=== PATIENT | female | born 1935 | race American Indian/Alaskan Native ===

== ENCOUNTER 2017-04-23 09:10 | Inpatient (IN) | payer MEDICARE, OTHER ==
[2017-04-23 09:13] VITALS: BMI 24.2
[2017-04-23] MEDS ORDERED: Albuterol-Ipratrop 3 mg / 0.5 (3 ml) UD ONE (09:23)
[2017-04-23] MEDS ORDERED: Nitroglycerin 2% Ointment Foilpak UD TOP STA (09:28)
[2017-04-23] MEDS: Albuterol-Ipratrop 3 mg / 0.5 (3 ml) UD IH SCH ×3 (09:30→10:00)
[2017-04-23 09:39] LABS: BASO # 0.05 K/mm3 (0.0-2.0); BASO % 0.4 % (0.0-3.0); EOS # 0.2 (0.0-0.7); EOS % 1.8 % (1.5-5.0); GRAN # 9.24 (1.4-6.5); GRAN % 76.4 % (50.0-68.0); LYMPH # 1.7 (1.2-3.4); LYMPH % 14.1 % (22.0-35.0); MEAN CELL VOLUME 69.4 fL (80.0-105.0); MEAN CORPUSCULAR HEMOGLOBIN 20.4 pg (25.0-35.0); MEAN CORPUSCULAR HGB CONC 29.4 g/dl (31.0-37.0); MONO # 0.9 (0.1-0.6); MONO % 7.3 % (1.0-6.0); PLATELET COUNT 344 10^3/uL (120.0-450.0); RBC 3.92 10^6/uL (3.5-6.1); RED CELL DISTRIBUTION WIDTH 24.6 % (11.5-14.5); WHITE BLOOD COUNT 12.1 10^3/ul (4.5-11.0)
--- NOTE | 2017-04-23 09:43 | ED PDOC ---
Arrival/HPI - General Chief Complaint: Shortness Of Breath Time Seen by Provider: 04/23/17 09:23 Historian: EM Caveat: Acuity of Condition - Critical Care Critical Care Minutes: 30 minutes - History of Present Illness Narrative History of Present Illness (Text): 04/23/17 09:40 81yo female with shortness of breath and LOCKETT since this morning. Pt denies chest pain. No f/c, no n/v, no other complaints. Hx obtained from daughter. Past Medical History - Provider Review Nursing Documentation Reviewed: Yes - Cardiac Hx Cardiac Disorders: Yes Hx Congestive Heart Failure: Yes Hx Hypertension: Yes - Pulmonary Hx Respiratory Disorders: No - Neurological Hx Neurological Disorder: No - Renal Hx Renal Disorder: No - Endocrine/Metabolic Hx Endocrine Disorders: No - Hematological/Oncological Hx Blood Disorders: No - Musculoskeletal/Rheumatological Hx Musculoskeletal Disorders: Yes Hx Fractures: Yes - Gastrointestinal Hx Gastrointestinal Disorders: No - Genitourinary/Gynecological Hx Genitourinary Disorders: No - Psychiatric Hx Psychophysiologic Disorder: No Hx Substance Use: No - Surgical History Hx Hysterectomy: Yes Family/Social History Family/Social History: Unknown Family HX Smoking Status: Never Smoked Hx Alcohol Use: No Hx Substance Use: No Allergies/Home Meds Allergies/Adverse Reactions: Allergies No Known Allergies Allergy (Verified 04/23/17 09:12) Home Medications: Home Meds Medication Instructions Recorded Confirmed Alendronate Sodium [Binosto] 70 mg PO 04/23/17 Allopurinol [Zyloprim] 100 mg PO DAILY 04/23/17 04/23/17 Aspirin [Adult Low Dose Aspirin EC] 81 mg PO DAILY 04/23/17 04/23/17 Atorvastatin Calcium 40 mg PO DAILY 04/23/17 04/23/17 Clopidogrel [Plavix] 75 mg PO DAILY 04/23/17 04/23/17 Colchicine [Colcrys] 0.6 mg PO DAILY 04/23/17 04/23/17 Folic Acid 1 mg PO DAILY 04/23/17 04/23/17 Furosemide [Lasix] 40 mg PO BID 04/23/17 04/23/17 Hydralazine HCl 50 mg PO TID 04/23/17 04/23/17 Linagliptin [Tradjenta] 5 mg PO DAILY 04/23/17 04/23/17 NIFEdipine ER [Procardia XL] 90 mg PO DAILY 04/23/17 04/23/17 Nebivolol [Bystolic] 20 mg PO DAILY 04/23/17 04/23/17 Valsartan [Diovan] 320 mg PO DAILY 04/23/17 04/23/17 cloNIDine 0.1 mg/24 hr [catapres 1 patch TD 04/23/17 04/23/17 TTS1] Review of Systems - Review of Systems Systems not reviewed;Unavailable: Respiratory Distress Physical Exam Vital Signs Reviewed: Yes Vital Signs Temp Pulse Resp BP Pulse Ox 04/23/17 10:12 97 F L 86 20 151/67 H 100 04/23/17 09:55 153/77 H 04/23/17 09:53 96.2 F L 04/23/17 09:22 105 H 21 156/69 H 04/23/17 09:15 130 H 42 H 99 Temperature: Afebrile Blood Pressure: Hypertensive Pulse: Tachycardic Respiratory Rate: Tachypneic Appearance: Positive for: Uncomfortable Pain Distress: None Mental Status: Positive for: Alert and Oriented X 3. No: Confused, Agitated - Systems Exam Head: Present: Atraumatic, Normocephalic Pupils: Present: PERRL Extroacular Muscles: Present: EOMI Conjunctiva: Present: Normal Mouth: Present: Moist Mucous Membranes Neck: Present: Normal Range of Motion Respiratory/Chest: Present: Respiratory Distress, Decreased Breath Sounds, Tachypneic Cardiovascular: Present: Irregular Rhythm, Peripheal Pulses Present, Tachycardic Abdomen: Present: Normal Bowel Sounds. No: Tenderness, Distention, Peritoneal Signs, Rebound, Guarding Back: Present: Normal Inspection Upper Extremity: Present: Normal Inspection. No: Cyanosis, Edema Lower Extremity: Present: Edema, NORMAL PULSES, Swelling Neurological: Present: GCS=15, CN II-XII Intact, Speech Normal, Other (no focal neurological deficits) Skin: Present: Warm, Dry, Normal Color. No: Rashes Psychiatric: Present: Alert, Oriented x 3 Medical Decision Making ED Course and Treatment: elderly female with shortness of breath. seen immediately on arrival b/l LE edema and tachypnea differential includes but not limited to: CHF, PNA, ACS bipap, nebs, asa, ntg ordered 04/23/17 09:43 on reeval, pt on bipap, breathing better, resp distress resolving 04/23/17 09:45 EKG: Ordered, reviewed, and independently interpreted the EKG. Rate : 120 BPM Rhythm : Irregular Atrial Fibrillation Interpretation : No ST-segment elevations,normal axis, normal intervals. Interpreted by me. 04/23/17 09:53: Patient tolerating BiPAP well. Respiratory distress significantly improved. 04/23/17 10:27 Chest X-ray: Cardiomegaly with vascular congestion. Possible infiltrate. 04/23/17 10:30: Case discussed with Dr. Calvillo from ICU. States he will evaluate. 04/23/17 11:43 EKG: Ordered, reviewed, and independently interpreted the EKG. Rate : 80 BPM Rhythm : NSR Interpretation : No ST-segment elevations, normal axis, normal intervals. Interpreted by me. 04/23/17 11:44: Patient seen and examined by Dr. Calvillo, agrees to admit patient into ICU. Requests Chest CT. 04/23/17 11:[address] Larios, accepted to his service pt's family aware of and agree with plan pt in no resp distress tolerating bipap wall - Critical Care Critical Care Minutes: 30 minutes - Lab Interpretations Lab Results: 04/23/17 09:35 04/23/17 10:15 Lab Results 04/23/17 10:15: Urine Color Light yellow, Urine Appearance Sl cloudy, Urine pH 6.0, Ur Specific [place] 1.025, Urine Protein 30 H, Urine Glucose (UA) Negative , Urine Ketones Negative, Urine Blood Negative, Urine Nitrate Negative, Urine Bilirubin Negative, Urine Urobilinogen 0.2, Ur Leukocyte Esterase Negative, Urine RBC 0 - 2, Urine WBC 0 - 2, Ur Epithelial Cells 0 - 2, Amorphous Sediment Moderate, Urine Bacteria Mod, Hyaline Casts 0 - 2 04/23/17 10:15: Sodium 144, Potassium 3.3 L, Chloride 110 H, Carbon Dioxide 22, Anion Gap 15, BUN 33 H, Creatinine 1.9 H, Est GFR ( Amer) 31, Est GFR ( Non-Af Amer) 25, Random Glucose 239 H, Calcium 8.8, Total Bilirubin 0.6, AST 56 H, ALT 46, Alkaline Phosphatase 101, Lactate Dehydrogenase 637, Total Creatine Kinase 82, Troponin I 0.11, NT-Pro-B Natriuret Pep 4110 H, Total Protein 6.7, Albumin 3.6, Globulin 3.2, Albumin/Globulin Ratio 1.1 04/23/17 09:35: PT 11.1, INR 1.03, APTT 18.4 L 04/23/17 09:35: WBC 12.1 H, RBC 3.92, Hgb 8.0 L, Hct 27.2 L, MCV 69.4 L, MCH 20.4 L, MCHC 29.4 L, RDW 24.6 H, Plt Count 344, Gran % 76.4 H, Lymph % (Auto) 14.1 L, [place] % (Auto) 7.3 H, Eos % (Auto) 1.8, Baso % (Auto) 0.4, Gran # 9.24 H , Lymph # 1.7, Burnet # 0.9 H, Eos # 0.2, Baso # 0.05 I have reviewed the lab results: Yes - RAD Interpretation Radiology Orders: 04/23/17 09:28 CHEST PORTABLE [RAD] Stat - EKG Interpretation Interpreted by ED Physician: Yes Type: 12 lead EKG - Medication Orders Current Medication Orders: Discontinued Medications Albuterol/Ipratropium (Duoneb 3 Mg/0.5 Mg (3 Ml) Ud) Confirm Administered Dose 9 ml .ROUTE .STK-MED ONE Stop: 04/23/17 09:24 Last Admin: 04/23/17 09:32 Dose: Albuterol/Ipratropium (Duoneb 3 Mg/0.5 Mg (3 Ml) Ud) 3 ml IH Q15M PENDING SALE TO [facility] Stop: 04/23/17 10:01 Last Admin: 04/23/17 10:00 Dose: 3 ml Aspirin (Aspirin Chewable) 324 mg PO STAT STA Stop: 04/23/17 09:29 Last Admin: 04/23/17 09:54 Dose: Aspirin (Aspirin Supp) 300 mg RC STAT STA Stop: 04/23/17 09:35 Last Admin: 04/23/17 09:53 Dose: 300 mg Re-Assess: NAEEM Pain/Vitals Document 04/23/17 10:53 GMI (Rec: 04/23/17 11:08 [id number] Pain Reassessment Is This A Pain ReAssessment? No Aspirin (Aspirin Supp) 300 mg RC STAT STA Stop: 04/23/17 09:36 Last Admin: 04/23/17 09:54 Dose: Furosemide (Lasix) 40 mg IVP STAT STA Stop: 04/23/17 09:29 Last Admin: 04/23/17 09:55 Dose: 40 mg Ceftriaxone Sodium (Rocephin 1 Gram Ivpb) 1 gm in 100 mls @ 200 mls/hr IV STAT STA PRN Reason: Protocol Stop: 04/23/17 10:55 Last Admin: 04/23/17 11:01 Dose: 200 mls/hr Azithromycin (Zithromax 500mg In Ns) 500 mg in 250 mls @ 167 mls/hr IVPB STAT STA PRN Reason: Protocol Stop: 04/23/17 11:55 Last Admin: 04/23/17 11:32 Dose: 167 mls/hr Nitroglycerin (Nitrostat Sl Tab) 0.3 mg SL STAT STA Stop: 04/23/17 09:29 Last Admin: 04/23/17 10:11 Dose: Nitroglycerin (Nitro-Bid 2% Oint) 1 ea TOP STAT STA Stop: 04/23/17 09:29 Last Admin: 04/23/17 10:05 Dose: 1 ea Disposition/Present on Arrival - Present on Arrival Any Indicators Present on Arrival: No History of DVT/PE: No History of Uncontrolled Diabetes: No Urinary Catheter: No History of Decub. Ulcer: No History Surgical Site Infection Following: None - Disposition Have Diagnosis and Disposition been Completed?: Yes Diagnosis: CHF (congestive heart failure) Disposition: HOSPITALIZED Disposition Time: 11:44 Patient Plan: Admission Condition: FAIR Discharge Instructions (ExitCare): Heart Failure (ED) Referrals: Kelli Hwang, [Primary Care Provider] - Follow up with primary Forms: [employer] ([place]i)
[2017-04-23 09:51] LABS: INR 1.03 (0.93-1.08); PARTIAL THROMBOPLASTIN TIME 18.4 Seconds (23.7-30.8); PROTHROMBIN TIME 11.1 Seconds (9.9-11.8)
[2017-04-23] MEDS ORDERED: cefTRIAXone 1 gm 1 GM/100 ML BAG IV STA (10:26)
[2017-04-23] MEDS ORDERED: Azithromycin 500MG/NS 250ml 500 MG/250 ML BAG IVPB STA (10:26)
[2017-04-23 10:32] LABS: URINE BILIRUBIN NEGATIVE (NEGATIVE); URINE BLOOD NEGATIVE (NEGATIVE); URINE GLUCOSE (UA) NEGATIVE (NEGATIVE); URINE LEUKOCYTE ESTERASE NEGATIVE Leu/uL (NEGATIVE); URINE NITRATE NEGATIVE (NEGATIVE); URINE PROTEIN 30 mg/dL (<30 mg/dL); URINE UROBILINOGEN 0.2 E.U./dL (<1 E.U./dL)
[2017-04-23 10:38] LABS: URINE APPEARANCE SL CLOUDY (CLEAR); URINE COLOR LIGHT YELLOW (YELLOW)
[2017-04-23 10:46] LABS: URINE AMORPHOUS SEDIMENT MODERATE; URINE BACTERIA MOD (NEG); URINE EPITHELIAL CELLS 0 - 2 /hpf (0-5); URINE HYALINE CAST 0 - 2 /hpf; URINE RBC 0 - 2 /hpf (0-2); URINE WBC 0 - 2 /hpf (0-6)
[2017-04-23 11:35] LABS: ALB/GLOB RATIO 1.1 (1.1-1.8); ALBUMIN 3.6 g/dL (3.0-4.8); CALCIUM 8.8 mg/dL (8.4-10.5)
[2017-04-23 11:47] LABS: TROPONIN I 0.11 ng/mL
--- NOTE | 2017-04-23 11:58 | RAD ---
HISTORY: cough COMPARISON: No prior. FINDINGS: LUNGS: No active pulmonary disease. PLEURA: No significant pleural effusion identified, no pneumothorax apparent. CARDIOVASCULAR: Moderate cardiomegaly. Moderate vascular congestion with minimal bibasilar infiltrates OSSEOUS STRUCTURES: No significant abnormalities. VISUALIZED UPPER ABDOMEN: Normal. OTHER FINDINGS: None. IMPRESSION: Moderate vascular congestion with minimal bibasilar infiltrates
[2017-04-23] MEDS ORDERED: Pneumococcal 23-Valent Vaccine IM ONE (13:41)
[2017-04-23] MEDS: Insulin Reg-HIGH-Coverage SC SCH ×2 (16:29→22:13)
--- NOTE | 2017-04-23 17:21 | CP.CCUPN ---
CCU Subjective - Physician Review Events Since Last Encounter (Free Text): 04/23/17 17:17 81 y/o F presented to the ER with SOB, COugh and dyspnea x 1 week. No fevers, chills or productive cough noted. Pt is currently on BIPAP an dmuch more comfortable. On CXR and physical exam she is exhibiting signs of CHF CCU Objective - Vital Signs / Intake & Output Vital Signs (Last 4 hours): Vital Signs Temp Pulse Resp BP 04/23/17 17:01 169/85 H 04/23/17 13:55 92 H 04/23/17 13:49 95 H 04/23/17 13:18 97 F L 75 20 136/72 Intake and Output (Last 8hrs): Intake & Output 04/23/17 04/23/17 04/23/17 06:59 14:59 22:59 Output Total 0 Balance 0 Weight 150 lb Output: Urine 0 Urethral (Gaitan) 0 Other: Voiding Method Toilet - Physical Exam Head: Positive for: Atraumatic, Normocephalic Pupils: Positive for: PERRL Extroacular Muscles: Positive for: EOMI Conjunctiva: Positive for: Normal Mouth: Positive for: Moist Mucous Membranes Neck: Positive for: Normal Range of Motion Respiratory/Chest: Positive for: Respiratory Distress, Decreased Breath Sounds, Tachypneic Cardiovascular: Positive for: Irregular Rhythm, Peripheal Pulses Present, Tachycardic Abdomen: Positive for: Normal Bowel Sounds. Negative for: Tenderness, Distention, Peritoneal Signs, Rebound, Guarding Back: Positive for: Normal Inspection Upper Extremity: Positive for: Normal Inspection. Negative for: Cyanosis, Edema Lower Extremity: Positive for: Edema, NORMAL PULSES, Swelling Neurological: Positive for: GCS=15, CN II-XII Intact, Speech Normal, Other (no focal neurological deficits) Skin: Positive for: Warm, Dry, Normal Color. Negative for: Rashes Psychiatric: Positive for: Alert, Oriented x 3 - Medications Active Medications: Active Medications Generic Name Dose Route Start Last Admin Trade Name Freq PRN Reason Stop Dose Admin Allopurinol 100 mg 04/24/17 10:00 Zyloprim PO DAILY RICARDO Aspirin 81 mg 04/24/17 10:00 Ecotrin PO DAILY RICARDO Clopidogrel Bisulfate 75 mg 04/24/17 10:00 Plavix PO DAILY RICARDO Colchicine 0.6 mg 04/24/17 10:00 Colocrys PO DAILY RICARDO Furosemide 40 mg 04/23/17 18:00 04/23/17 17:01 Lasix IVP 40 mg BID RICARDO Administration Ceftriaxone Sodium 1 gm in 100 mls @ 100 mls/hr 04/24/17 10:00 Rocephin 1 Gram Ivpb IVPB DAILY RICARDO Protocol Azithromycin 500 mg in 250 mls @ 167 mls/hr 04/24/17 10:00 Zithromax 500mg In Ns IVPB DAILY RICARDO Protocol Insulin Human Regular 0 units 04/23/17 16:30 04/23/17 16:29 Humulin R High SC 2 units ACHS RICARDO Administration Protocol Home Med (Nebivolol 20 mg 04/24/17 10:00 [Bystolic] 20 Mg) PO DAILY RICARDO Valsartan 320 mg 04/24/17 10:00 Diovan PO DAILY RICARDO - Patient Studies Lab Studies: Lab Studies 04/23/17 Range/Units 15:58 POC Glucose (mg/dL) 163 H (65-110) mg/dL Laboratory Results - last 24 hr 04/23/17 15:58 POC Glucose (mg/dL) 163 H EKG/Cardiology Studies: Cardiology / EKG Studies 04/23/17 11:41 EKG [ELECTROCARDIOGRAM] Stat Comment: Reason For Exam: SOB Fingerstick Blood Sugar Results: 163 Review of Systems - EENT Ears: UNREMARKABLE Nose/Mouth/Throat: UNREMARKABLE - Breasts Breasts: UNREMARKABLE - Cardiovascular Cardiovascular: Dyspnea, Leg Edema - Respiratory Respiratory: Dyspnea - Gastrointestinal Gastrointestinal: UNREMARKABLE - Genitourinary Genitourinary: UNREMARKABLE - Reproductive: Female Reproductive:Female: UNREMARKABLE - Musculoskeletal Musculoskeletal: UNREMARKABLE - Integumentary Integumentary: UNREMARKABLE Critical Care Progress Note - Ventilator Checklist PUD Prophalyxis: Yes Oral Care with Chlorhexidine Gluconate {CHG}: Yes - Nutrition Nutrition: Nutrition Category Date Time Status Heart Healthy Diet [DIET] Diets 04/23/17 Dinner Ordered Assessment/Plan - Assessment and Plan (Free Text) Assessment: 81 y/o F w/ SOB, DYspnea and Hypoxia. CXR noted to have Increased PVC and Hilar fullness. Cannot r/o Mass or infiltrate. CT chest ordered . Lasix given, PPV BIPAP started . Urine output measured. SBP < 180 . ABG Pending. Anti htn medication to restart oral once p.o intake is safe. PAULA noted, likely pre-renal state. Will monitor and hydrate once respiratory statu simproves, unless noted to have new reduced EF% after ECHO. At that point may have acute on Chronic Kidney disease. Will need previous records. Anemia, transfuse if HGB< 7 cc time 65 min
[2017-04-23 17:46] LABS: MEAN CORPUSCULAR HEMOGLOBIN 20.1 pg (25.0-35.0); MEAN CORPUSCULAR HGB CONC 29.1 g/dl (31.0-37.0); PLATELET COUNT 265 10^3/uL (120.0-450.0); RBC 3.58 10^6/uL (3.5-6.1); RED CELL DISTRIBUTION WIDTH 23.4 % (11.5-14.5); WHITE BLOOD COUNT 11.7 10^3/ul (4.5-11.0)
[2017-04-23 17:50] LABS: HEMOGLOBIN 7.2 gm/dL (12.0-16.0)
[2017-04-23] MEDS ORDERED: Albuterol 0.5% Inhal Sol (2.5 mg/0.5 ml) UD IH PRN (18:08)
[2017-04-23 18:23] LABS: ALB/GLOB RATIO 1.2 (1.1-1.8); ALBUMIN 3.7 g/dL (3.0-4.8); CALCIUM 8.9 mg/dL (8.4-10.5)
--- NOTE | 2017-04-24 04:12 | HP ---
HISTORY OF PRESENT ILLNESS: I was called down to the emergency room today to see Dara. She is very short of breath. She was brought in by family. She is an 81-year-old female with very short of breath with dyspnea on exertion. No chest pain, no fevers. Swelling in the legs. PAST MEDICAL HISTORY: CHF, hypertension, and diabetes. She had fractures before. No apparent substance abuse. She had hysterectomy in the past. FAMILY HISTORY: Hypertension and diabetes in the family. SOCIAL HISTORY: She never smoked, no alcohol, no drugs. ALLERGIES: NO KNOWN DRUG ALLERGIES. MEDICATIONS: She is on Binosto, Zyloprim, aspirin, calcium, Plavix, Colcrys, folic acid, Lasix, hydralazine, Tradjenta, Procardia, Bystolic, Diovan, and Catapres. REVIEW OF SYSTEMS: Right now, she is on BiPAP, but denies any vision or hearing changes. No chest pain. Some shortness of breath, a little bit better than when she came in. No diarrhea, constipation, nausea, or vomiting. Extremities are swollen. Not nervous, not depressed. PHYSICAL EXAMINATION VITAL SIGNS: She has a 96.2 temperature, 130 pulse respiratory rate, 156/69 blood pressure, 99% sat on oxygen. HEENT: Head is atraumatic, normocephalic. Throat is dry. GENERAL: Alert and oriented x3. NECK: Fair range of motion. LUNGS: Decreased breath sounds bilaterally. Wheezes, congestion, tachypneic. HEART: Irregularly irregular. ABDOMEN: Soft, nontender, positive bowel sounds. No guarding. No rebound. No CVA tenderness. EXTREMITIES: Has a lot of edema,+3/4 pitting edema. SKIN: For the most part is intact. Warm and dry at this time. NEUROLOGIC: GCS is 15. Cranial nerves II to XII grossly intact. Alert and oriented x3. Thyroid midline. No palpable lymphadenopathy appreciated. LABORATORY DATA: She had multiple tests done. She had a chest x-ray which shows moderate vascular congestion with minimal bibasilar infiltrates. She has a 144 sodium, potassium 3.3, I replaced the potassium. BUN 33, creatinine 1.9, little bit of renal insufficiency, along with CHF and pneumonia. GFR is 25, random sugar is 239, I put her on insulin coverage and back on some of her medication. Calcium is 8.8, total bilirubin is 0.6, AST is 56, ALT is 46, alkaline phosphatase 101. Lactate dehydrogenase is 637. Troponin is high at 0.11. BNP is high at 4110. Total protein is 6.7. Urine is 30 protein, moderate bacteria, having a little bit of UTI. INR is 1.03. White count is 12.1, hemoglobin 8, quite anemic, 27.2 hematocrit, 344 platelets. I will check the stools for blood; we will call in GI. Chest x-ray was not good with bibasilar infiltrates, CHF, and vascular congestion. ASSESSMENT AND PLAN: Congestive heart failure, pneumonia, anemia, renal insufficiency, urinary tract infection, acute respiratory failure on BiPAP. I put her on Lasix IV. IV antibiotics. Pulmonary, cardio, GI consults. Check on her blood sugars. She is going to the intensive care unit. Gumaro Larios DO MTDD
[2017-04-24 06:23] LABS: MEAN CELL VOLUME 69.2 fL (80.0-105.0); MEAN CORPUSCULAR HEMOGLOBIN 19.9 pg (25.0-35.0); MEAN CORPUSCULAR HGB CONC 28.7 g/dl (31.0-37.0); PLATELET COUNT 199 10^3/uL (120.0-450.0); RBC 3.12 10^6/uL (3.5-6.1); RED CELL DISTRIBUTION WIDTH 23.3 % (11.5-14.5); WHITE BLOOD COUNT 9.8 10^3/ul (4.5-11.0)
[2017-04-24 06:30] LABS: HEMOGLOBIN 6.2 gm/dL (12.0-16.0)
[2017-04-24 06:31] LABS: ALB/GLOB RATIO 1.1 (1.1-1.8); ALBUMIN 3.3 g/dL (3.0-4.8); CALCIUM 8.6 mg/dL (8.4-10.5)
[2017-04-24] MEDS ORDERED: Levalbuterol 0.63 MG/3 ML Inhal Soln UD IH PRN (06:38)
[2017-04-24] MEDS: Levalbuterol 0.63 MG/3 ML Inhal Soln UD IH SCH ×3 (07:25→20:05)
--- NOTE | 2017-04-24 07:29 | CON ---
DATE: 04/24/2017 REASON FOR CONSULTATION: Shortness of breath. REFERRING PHYSICIAN: Dr. Larios. History is obtained via extensive discussion with the nursing staff. I have also discussed the case with the patient at length, and reviewed the chart at length. HISTORY OF PRESENT ILLNESS: The patient is an 81-year-old female with past medical history significant for congestive heart failure, diabetes mellitus, hypertension, who presents to [facility] with a 2-day history of worsening shortness of breath at rest, dyspnea on exertion and cough. There is no history of sputum production. There is no history of chest pain, coughing up of blood or chest pain-made worse with deep respirations. There is no history of temperatures, chills, or infectious exposure. There is no history of night sweats, weight loss, or appetite change prior to the above events. No history of leg or calf pains. No history of syncope or diaphoresis. No history of recent travel or trauma. REVIEW OF SYSTEMS: No history of nausea, vomiting, or diarrhea. No acute urinary symptoms. No new neurological or musculoskeletal complaints. Rest of the review of systems negative. ALLERGIES: NO KNOWN ALLERGIES. SOCIAL HISTORY: Negative for tobacco, negative for alcohol. FAMILY HISTORY: No inheritable diseases. HOME MEDICATIONS: Include clonidine, Lasix, Bystolic, Diovan, Procardia, hydralazine, aspirin, Zyloprim, and Plavix. PHYSICAL EXAMINATION: GENERAL: The patient appears comfortable this morning. She is not short of breath at rest. She is not using accessory muscles for breathing. VITAL SIGNS: Temperature is 98.1, pulse is 77, respirations 18, blood pressure 165/82. Oxygen saturation on BiPAP is 100%. HEENT: Normocephalic, atraumatic. NECK: No JVD. CARDIOVASCULAR: Systolic ejection murmur at the lower left sternal border. Positive S3 gallop. LUNGS: Decreased breath sounds with crackles at both bases. Minimal bilateral rhonchi. No wheezing. EXTREMITIES: Positive for edema. No cyanosis, no clubbing. Calves are nontender to palpation. GASTROINTESTINAL: Abdomen is soft, nontender, and nondistended. Bowel sounds are positive. SKIN: No acute rash. NEUROLOGIC: Limited at the present time. PERTINENT LABORATORY DATA: Chest x-ray was done yesterday and reviewed. There is moderate to severe pulmonary vascular congestive changes noted. There are also some probable small bilateral pleural effusions. Findings are consistent with acute congestive heart failure. CBC: White count 9.8, hemoglobin 6.2, hematocrit 21.6, platelets of 199. Complete metabolic profile: Sodium 149, potassium 3.4, chloride 111, BUN 27, creatinine 1.5. Rest of the metabolic profiles are within normal limits. Initial B-type natriuretic peptide 4110. Initial troponin 0.11. IMPRESSION: 1. Acute congestive heart failure. 2. Small bilateral pleural effusions. 3. Acute bronchitis. 4. Anemia. 5. Renal insufficiency. PLAN: Again, I did discuss the case with the nursing staff and the patient at length. I have also reviewed the chart at length. The patient presents with a 2-day history of worsening pulmonary symptoms. I did review the chest x-ray as above. The x-ray is consistent with acute congestive heart failure and bilateral pleural effusions. The patient has been placed on Lasix therapy. Cardiology evaluation with Dr. Boudreaux has been ordered. I will order a repeat chest x-ray to be done this morning. I will also order an arterial blood gas to be done. I will analyze those results when feasible. On physical exam, only minimal bronchospasm is present. I will start Xopenex nebulizer treatments this morning. The patient has also been started on antibiotic therapy. There are no temperatures noted. The mild leukocytosis has resolved. I will also order a procalcitonin to be done---to try and discern whether there is an underlying pneumonia. Clinical status of the patient is significantly improved-compared to the initial presentation. Additional intervention will depend on the above results, as well as the clinical status of the patient. I will discuss the above with the entire ICU team in the next few moments. I will also discuss the above with Dr. Larios later this morning. Thank you very much for this pulmonary consultation. Pascual Maynard MD YAMIL[facility]
[2017-04-24 07:33] LABS: ARTERIAL BLOOD GAS HCO3 21.6 mmol/L (21-28); ARTERIAL BLOOD GAS O2 CAPACITY 8.3 mL/dl (16-24); ARTERIAL BLOOD GAS O2 CONTENT 8.1 ML/dl (15-23); ARTERIAL BLOOD GAS O2 SAT 97.4 % (95-98); ARTERIAL BLOOD GAS PCO2 42 mm/Hg (35-45); ARTERIAL BLOOD GAS PH 7.32 (7.35-7.45); ARTERIAL BLOOD GAS TCO2 22.9 mmol.L (22-28)
--- NOTE | 2017-04-24 07:58 | CP.PCM.CON ---
<Benjamin Posadas - Last Filed: 04/24/17 10:36> History of Present Illness - History of Present Illness History of Present Illness: PGY5 GI Fellow Consult Note Patient is an 81yo female with PMHx significant for CHF (echo pending, first time at our facility), HTN and DM who presented to the ED with complaint of shortness of breath. At present, the patient is somewhat dyspneic and in general is a rather poor historian. She states that for about 1 weeks leading up to admission she developed progressively worsening SOB and LE edema as well as dyspnea on exertion to the point where she could barely move without issue. Does admit to recently flying to [place] from [place] two weeks ago. She is currently being treat for an acute exacerbation of her CHF (BNP 4000+). Our service was consulted as the patient is found to be anemic with a HGB of 8 on admission lab work, downtrending to 6.2 today without any overt bleeding noted by staff. Patient does admit to black tarry stool on several occasions over the past month. Of note, the patient is currently on Plavix. PMHx: See HPI PSHx: Hysterectomy FHx: Discussed with patient and she denies any significant family history Social: Denies tobacco, EtOH or illicit drug use Endo: EGD/Colon 1-2 years ago - unremarkable per patient 12 system ROS performed and negative except where stated Past Patient History - Past Social History Smoking Status: Never Smoked - CARDIAC Hx Cardiac Disorders: Yes Hx Circulatory Problems: Yes Hx Congestive Heart Failure: Yes Hx Hypertension: Yes Hx Peripheral Edema: Yes - PULMONARY Hx Respiratory Disorders: No - NEUROLOGICAL Hx Neurological Disorder: No - RENAL Hx Chronic Kidney Disease: No - ENDOCRINE/METABOLIC Hx Endocrine Disorders: Yes Hx Diabetes Mellitus Type 2: Yes - HEMATOLOGICAL/ONCOLOGICAL Hx Blood Disorders: No - INTEGUMENTARY Hx Dermatological Problems: Yes Other/Comment: 04-23-17 BILATERA LE PITTING EDEMA +3 TO LEFT LE,AND +2 TO RIGHT LEG. - MUSCULOSKELETAL/RHEUMATOLOGICAL Hx Musculoskeletal Disorders: Yes Hx Falls: No Hx Fractures: Yes Hx Gout: Yes Hx Osteoporosis: Yes Hx Unsteady Gait: Yes (CANE) - GASTROINTESTINAL Hx Gastrointestinal Disorders: No - GENITOURINARY/GYNECOLOGICAL Hx Genitourinary Disorders: Yes (HYSTERECTOMY) - PSYCHIATRIC Hx Psychophysiologic Disorder: No Hx Substance Use: No - SURGICAL HISTORY Hx Surgeries: Yes Hx Hysterectomy: Yes Meds Allergies/Adverse Reactions: Allergies Allergy/AdvReac Type Severity Reaction Status Date / Time No Known Allergies Allergy Verified 04/23/17 12:38 - Medications Medications: Current Medications Allopurinol (Zyloprim) 100 mg PO DAILY ON LICENSE OF [facility] Colchicine (Colocrys) 0.6 mg PO DAILY ON LICENSE OF [facility] Furosemide (Lasix) 40 mg IVP BID ON LICENSE OF [facility] Last Admin: 04/23/17 17:01 Dose: 40 mg Heparin Sodium (Porcine) (Heparin) 5,000 units SC Q12 RICARDO PRN Reason: Protocol Last Admin: 04/23/17 22:16 Dose: 5,000 units Ceftriaxone Sodium (Rocephin 1 Gram Ivpb) 1 gm in 100 mls @ 100 mls/hr IVPB DAILY RICARDO PRN Reason: Protocol Azithromycin (Zithromax 500mg In Ns) 500 mg in 250 mls @ 167 mls/hr IVPB DAILY RICARDO PRN Reason: Protocol Insulin Human Regular (Humulin R High) 0 units SC ACHS RICARDO PRN Reason: Protocol Last Admin: 04/23/17 22:13 Dose: Not Given Levalbuterol HCl (Xopenex) 0.63 mg IH [id number] ON LICENSE OF [facility] Last Admin: 04/24/17 07:25 Dose: 0.63 mg Levalbuterol HCl (Xopenex) 0.63 mg IH Q2 PRN PRN Reason: Shortness of Breath Home Med (Nebivolol ([Bystolic] 20 Mg)) 20 mg PO DAILY ON LICENSE OF [facility] Pantoprazole Sodium (Protonix Inj) 40 mg IVP Q12 ON LICENSE OF [facility] Valsartan (Diovan) 320 mg PO DAILY ON LICENSE OF [facility] Physical Exam - Constitutional Appears: Chronically Ill, Other (uncomfortable) - Eye Exam Eye Exam: EOMI, PERRL - ENT Exam ENT Exam: Mucous Membranes Dry - Respiratory Exam Respiratory Exam: Decreased Breath Sounds, Rales, Wheezes. absent: Clear to Auscultation Bilateral, Rhonchi - Cardiovascular Exam Cardiovascular Exam: Tachycardia, +S1, +S2 - GI/Abdominal Exam GI & Abdominal Exam: Normal Bowel Sounds, Soft. absent: Distended, Firm, Guarding, Organomegaly, Rigid, Tenderness - Extremities Exam Additional comments: B/L 2+ LE edema - Neurological Exam Neurological exam: Alert, Oriented x3 - Psychiatric Exam Psychiatric exam: Anxious - Skin Skin Exam: Dry, Warm Results - Vital Signs Recent Vital Signs: Last Vital Signs Temp 98.1 F 04/24/17 04:00 Pulse 78 04/24/17 05:54 Resp 27 H 04/24/17 05:54 BP 165/82 H 04/24/17 05:20 Pulse Ox 100 04/24/17 05:50 - Labs Result Diagrams: 04/24/17 06:00 04/24/17 06:00 Labs: Laboratory Results - last 24 hr 04/23/17 04/23/17 04/23/17 15:58 17:40 17:40 WBC 11.7 H RBC 3.58 Hgb 7.2 L Hct 24.7 L MCV 69.0 L MCH 20.1 L MCHC 29.1 L RDW 23.4 H Plt Count 265 pCO2 pO2 HCO3 ABG pH ABG Total CO2 ABG O2 Saturation ABG O2 Content ABG Base Excess ABG Hemoglobin ABG Carboxyhemoglobin POC ABG HHb (Measured) ABG Methemoglobin ABG O2 Capacity Hgb O2 Saturation FiO2 Sodium 145 Potassium 3.7 Chloride 109 H Carbon Dioxide 23 Anion Gap 17 BUN 31 H Creatinine 1.6 H Est GFR ( Amer) 37 Est GFR (Non-Af Amer) 31 POC Glucose (mg/dL) 163 H Random Glucose 128 H Calcium 8.9 Total Bilirubin 0.5 AST 33 ALT 45 Alkaline Phosphatase 93 Total Protein 6.8 Albumin 3.7 Globulin 3.1 Albumin/Globulin Ratio 1.2 04/23/17 04/24/17 04/24/17 21:30 06:00 06:00 WBC 9.8 RBC 3.12 L Hgb 6.2 L* Hct 21.6 L MCV 69.2 L MCH 19.9 L MCHC 28.7 L RDW 23.3 H Plt Count 199 pCO2 pO2 HCO3 ABG pH ABG Total CO2 ABG O2 Saturation ABG O2 Content ABG Base Excess ABG Hemoglobin ABG Carboxyhemoglobin POC ABG HHb (Measured) ABG Methemoglobin ABG O2 Capacity Hgb O2 Saturation FiO2 Sodium 149 H Potassium 3.4 L Chloride 111 H Carbon Dioxide 26 Anion Gap 15 BUN 27 H Creatinine 1.5 H Est GFR ( Amer) 40 Est GFR (Non-Af Amer) 33 POC Glucose (mg/dL) 122 H Random Glucose 70 Calcium 8.6 Total Bilirubin 0.4 AST 30 ALT 47 Alkaline Phosphatase 77 Total Protein 6.1 Albumin 3.3 Globulin 2.9 Albumin/Globulin Ratio 1.1 04/24/17 04/24/17 07:28 07:30 WBC RBC Hgb Hct MCV MCH MCHC RDW Plt Count pCO2 42 pO2 69.0 L HCO3 21.6 ABG pH 7.32 L ABG Total CO2 22.9 ABG O2 Saturation 97.4 ABG O2 Content 8.1 L ABG Base Excess -4.1 L ABG Hemoglobin 6.0 L ABG Carboxyhemoglobin 1.8 H POC ABG HHb (Measured) 2.5 ABG Methemoglobin 0.9 ABG O2 Capacity 8.3 L Hgb O2 Saturation 94.8 L FiO2 50.0 Sodium Potassium Chloride Carbon Dioxide Anion Gap BUN Creatinine Est GFR ( Amer) Est GFR (Non-Af Amer) POC Glucose (mg/dL) 88 Random Glucose Calcium Total Bilirubin AST ALT Alkaline Phosphatase Total Protein Albumin Globulin Albumin/Globulin Ratio Assessment & Plan - Assessment and Plan (Free Text) Assessment: Patient is an 81yo female with PMHx significant for CHF (echo pending, first time at our facility), HTN and DM who presented to the ED with complaint of shortness of breath. -Acute CHF exacerbation -Abnormal CT of the neck/chest -Anemia -PAULA, possible underlying CKD -HTN -DM Plan: -There is no overt GI bleeding noted, discussed with nursing -Recommend transfusing PRBCs; will defer management to ICU staff -CT reviewed with radio communications superintendent; concern for abnormal LNs in chest as well as lesion near thyroid -Awaiting echocardiogram -On Lasix 40mg IV BID for acute CHF exacerbation -Check iron panel prior to transfusion if possible -Patient would benefit from EGD given anemia; would optimize medically prior to evaluating - not currently a candidate for procedure -Will follow - Date & Time Date: 04/24/17 Time: 07:50 <Benedicto Calvert - Last Filed: 04/24/17 13:38> Meds - Medications Medications: Current Medications Allopurinol (Zyloprim) 100 mg PO DAILY ON LICENSE OF [facility] Last Admin: 04/24/17 09:01 Dose: 100 mg Colchicine (Colocrys) 0.6 mg PO DAILY ON LICENSE OF [facility] Last Admin: 04/24/17 09:17 Dose: 0.6 mg Furosemide (Lasix) 40 mg IVP BID ON LICENSE OF [facility] Last Admin: 04/24/17 09:21 Dose: 40 mg Heparin Sodium (Porcine) (Heparin) 5,000 units SC Q12 RICARDO PRN Reason: Protocol Last Admin: 04/23/17 22:16 Dose: 5,000 units Ceftriaxone Sodium (Rocephin 1 Gram Ivpb) 1 gm in 100 mls @ 100 mls/hr IVPB DAILY RICARDO PRN Reason: Protocol Last Admin: 04/24/17 09:02 Dose: 100 mls/hr Azithromycin (Zithromax 500mg In Ns) 500 mg in 250 mls @ 167 mls/hr IVPB DAILY RICARDO PRN Reason: Protocol Last Admin: 04/24/17 09:10 Dose: 167 mls/hr Insulin Human Regular (Humulin R High) 0 units SC ACHS RICARDO PRN Reason: Protocol Last Admin: 04/24/17 11:30 Dose: Not Given Levalbuterol HCl (Xopenex) 0.63 mg IH [id number] ON LICENSE OF [facility] Last Admin: 04/24/17 13:24 Dose: 0.63 mg Levalbuterol HCl (Xopenex) 0.63 mg IH Q2 PRN PRN Reason: Shortness of Breath Home Med (Nebivolol ([Bystolic] 20 Mg)) 20 mg PO DAILY ON LICENSE OF [facility] Pantoprazole Sodium (Protonix Inj) 40 mg IVP Q12 ON LICENSE OF [facility] Last Admin: 04/24/17 09:02 Dose: 40 mg Pantoprazole Sodium (Protonix Ec Tab) 40 mg PO 0600 ON LICENSE OF [facility] Valsartan (Diovan) 320 mg PO DAILY ON LICENSE OF [facility] Last Admin: 04/24/17 09:01 Dose: 320 mg Results - Vital Signs Recent Vital Signs: Last Vital Signs Temp 98.8 F 04/24/17 13:28 Pulse 75 04/24/17 13:28 Resp 32 H 04/24/17 13:28 BP 178/94 H 04/24/17 13:28 Pulse Ox 100 04/24/17 12:40 - Labs Result Diagrams: 04/24/17 06:00 04/24/17 06:00 Labs: Laboratory Results - last 24 hr 04/23/17 04/23/17 04/23/17 15:58 17:40 17:40 WBC 11.7 H RBC 3.58 Hgb 7.2 L Hct 24.7 L MCV 69.0 L MCH 20.1 L MCHC 29.1 L RDW 23.4 H Plt Count 265 pCO2 pO2 HCO3 ABG pH ABG Total CO2 ABG O2 Saturation ABG O2 Content ABG Base Excess ABG Hemoglobin ABG Carboxyhemoglobin POC ABG HHb (Measured) ABG Methemoglobin ABG O2 Capacity Hgb O2 Saturation FiO2 Sodium 145 Potassium 3.7 Chloride 109 H Carbon Dioxide 23 Anion Gap 17 BUN 31 H Creatinine 1.6 H Est GFR ( Amer) 37 Est GFR (Non-Af Amer) 31 POC Glucose (mg/dL) 163 H Random Glucose 128 H Calcium 8.9 Iron TIBC % Saturation Total Bilirubin 0.5 AST 33 ALT 45 Alkaline Phosphatase 93 Troponin I NT-Pro-B Natriuret Pep Total Protein 6.8 Albumin 3.7 Globulin 3.1 Albumin/Globulin Ratio 1.2 Procalcitonin Blood Type Blood Type Confirm Antibody Screen Crossmatch BBK History Checked 04/23/17 04/24/17 04/24/17 21:30 06:00 06:00 WBC 9.8 RBC 3.12 L Hgb 6.2 L* Hct 21.6 L MCV 69.2 L MCH 19.9 L MCHC 28.7 L RDW 23.3 H Plt Count 199 pCO2 pO2 HCO3 ABG pH ABG Total CO2 ABG O2 Saturation ABG O2 Content ABG Base Excess ABG Hemoglobin ABG Carboxyhemoglobin POC ABG HHb (Measured) ABG Methemoglobin ABG O2 Capacity Hgb O2 Saturation FiO2 Sodium 149 H Potassium 3.4 L Chloride 111 H Carbon Dioxide 26 Anion Gap 15 BUN 27 H Creatinine 1.5 H Est GFR ( Amer) 40 Est GFR (Non-Af Amer) 33 POC Glucose (mg/dL) 122 H Random Glucose 70 Calcium 8.6 Iron TIBC % Saturation Total Bilirubin 0.4 AST 30 ALT 47 Alkaline Phosphatase 77 Troponin I NT-Pro-B Natriuret Pep Total Protein 6.1 Albumin 3.3 Globulin 2.9 Albumin/Globulin Ratio 1.1 Procalcitonin Blood Type Blood Type Confirm Antibody Screen Crossmatch BBK History Checked 04/24/17 04/24/17 04/24/17 07:28 07:30 08:00 WBC RBC Hgb Hct MCV MCH MCHC RDW Plt Count pCO2 42 pO2 69.0 L HCO3 21.6 ABG pH 7.32 L ABG Total CO2 22.9 ABG O2 Saturation 97.4 ABG O2 Content 8.1 L ABG Base Excess -4.1 L ABG Hemoglobin 6.0 L ABG Carboxyhemoglobin 1.8 H POC ABG HHb (Measured) 2.5 ABG Methemoglobin 0.9 ABG O2 Capacity 8.3 L Hgb O2 Saturation 94.8 L FiO2 50.0 Sodium Potassium Chloride Carbon Dioxide Anion Gap BUN Creatinine Est GFR ( Amer) Est GFR (Non-Af Amer) POC Glucose (mg/dL) 88 Random Glucose Calcium Iron 26 L TIBC 359 % Saturation 7 L Total Bilirubin AST ALT Alkaline Phosphatase Troponin I NT-Pro-B Natriuret Pep Total Protein Albumin Globulin Albumin/Globulin Ratio Procalcitonin Blood Type Blood Type Confirm Antibody Screen Crossmatch BBK History Checked 04/24/17 04/24/17 04/24/17 08:07 08:07 09:07 WBC RBC Hgb Hct MCV MCH MCHC RDW Plt Count pCO2 pO2 HCO3 ABG pH ABG Total CO2 ABG O2 Saturation ABG O2 Content ABG Base Excess ABG Hemoglobin ABG Carboxyhemoglobin POC ABG HHb (Measured) ABG Methemoglobin ABG O2 Capacity Hgb O2 Saturation FiO2 Sodium Potassium Chloride Carbon Dioxide Anion Gap BUN Creatinine Est GFR ( Amer) Est GFR (Non-Af Amer) POC Glucose (mg/dL) Random Glucose Calcium Iron TIBC % Saturation Total Bilirubin AST ALT Alkaline Phosphatase Troponin I 0.23 H* D NT-Pro-B Natriuret Pep 5880 H Total Protein Albumin Globulin Albumin/Globulin Ratio Procalcitonin 0.26 Blood Type B POSITIVE Blood Type Confirm Antibody Screen Negative Crossmatch See Detail BBK History Checked No verified bt 04/24/17 04/24/17 09:19 11:42 WBC RBC Hgb Hct MCV MCH MCHC RDW Plt Count pCO2 pO2 HCO3 ABG pH ABG Total CO2 ABG O2 Saturation ABG O2 Content ABG Base Excess ABG Hemoglobin ABG Carboxyhemoglobin POC ABG HHb (Measured) ABG Methemoglobin ABG O2 Capacity Hgb O2 Saturation FiO2 Sodium Potassium Chloride Carbon Dioxide Anion Gap BUN Creatinine Est GFR ( Amer) Est GFR (Non-Af Amer) POC Glucose (mg/dL) 145 H Random Glucose Calcium Iron TIBC % Saturation Total Bilirubin AST ALT Alkaline Phosphatase Troponin I NT-Pro-B Natriuret Pep Total Protein Albumin Globulin Albumin/Globulin Ratio Procalcitonin Blood Type Blood Type Confirm B POSITIVE Antibody Screen Crossmatch BBK History Checked Attending/Attestation - Attestation I have personally seen and examined this patient.: Yes I have fully participated in the care of the patient.: Yes I have reviewed all pertinent clinical information: Yes Notes (Text): 04/24/17 13:36 81 year old female with h/o CHF, HTN and DM admitted to ICU with SOB/CHF exacerbation, also with anemia, questionable h/o melena. 1. Microcytic anemia 2. Melena Plan: -no witnessed melena in hospital or active gi bleeding noted -hgb downtrending -check iron studies -monitor for bleeding -transfuse blood -diuresis / bipap per ICU for CHF -currently not medically stable for egd -consider heme/onc evaluation for anemia due to concern for malignancy -recommend empiric PPI BID in the interim
--- NOTE | 2017-04-24 08:51 | CT ---
PROCEDURE: CT Chest, Abdomen and Pelvis without intravenous contrast HISTORY: r/o Retro bleed COMPARISON: None. TECHNIQUE: Radiation dose: Total exam DLP = 760 mGy-cm. This CT exam was performed using one or more of the following dose reduction techniques: Automated exposure control, adjustment of the mA and/or kV according to patient size, and/or use of iterative reconstruction technique. FINDINGS: CT CHEST WITHOUT CONTRAST: LUNGS: Ground-glass interstitial infiltrates are seen bilaterally. MEDIASTINUM: Unremarkable. Normal caliber aorta and pulmonary arterial trunk. Normal size heart. LYMPH NODES: Unremarkable. PLEURA: Moderate size pleural effusion on the right and small effusion on the left BONES: Unremarkable. OTHER FINDINGS: None. CT ABDOMEN AND PELVIS: LIVER: Unremarkable. No gross lesion or ductal dilatation. GALLBLADDER AND BILE DUCTS: Unremarkable. PANCREAS: Unremarkable. No gross lesion or ductal dilatation. SPLEEN: Unremarkable. ADRENALS: Unremarkable. No mass. KIDNEYS AND URETERS: Unremarkable. No hydronephrosis. No solid mass. VASCULATURE: Unremarkable. No aortic aneurysm. BOWEL: Unremarkable. No obstruction. No gross mural thickening. APPENDIX: Normal appendix. PERITONEUM: Unremarkable. No free fluid. No free air. LYMPH NODES: Unremarkable. No enlarged lymph nodes. BLADDER: Unremarkable. REPRODUCTIVE: Unremarkable. BONES: No acute fracture. OTHER FINDINGS: None. IMPRESSION: No evidence of retroperitoneal hemorrhage. No acute findings
[2017-04-24] MEDS: Insulin Reg-HIGH-Coverage SC SCH ×4 (09:00→22:23)
[2017-04-24 09:02] LABS: % IRON SATURATION 7 % (20-55); IRON 26 ug/dL (45-180); TOTAL IRON BINDING CAPACITY 359 ug/dL (265-497)
[2017-04-24] MEDS: cefTRIAXone 1 gm 1 GM/100 ML BAG IVPB SCH (09:02)
[2017-04-24] MEDS: Azithromycin 500MG/NS 250ml 500 MG/250 ML BAG IVPB SCH (09:10)
--- NOTE | 2017-04-24 09:20 | CARD ---
APPROVED REPORT EXAM: Two-dimensional and M-mode echocardiogram with Doppler and color Doppler. Other Information Quality : FairRhythm : INDICATION Dyspnea , NSTEMI, CHF 2D DIMENSIONS IVSd1.2 (0.7-1.1cm)LVDd4.1 (3.9-5.9cm) PWd1.2 (0.7-1.1cm)LVDs2.7 (2.5-4.0cm) FS (%) 33.7 %LVEF (%)63.0 (>50%) M-Mode DIMENSIONS Left Atrium (MM)4.20 (2.5-4.0cm)Aortic Root3.40 (2.2-3.7cm) Aortic Cusp Exc.2.10 (1.5-2.0cm) Aortic Valve AoV Peak Tmopzkzj628.0cm/s Mitral Valve MV E Oxivhyni902.0cm/sMV A Jqkhqhfa73.1cm/sE/A ratio1.5 TDI Lateral E' Peak V6.82cm/sMedial E' Peak V3.29cm/sE/Lateral E'18.5 E/Medial E'38.3 Tricuspid Valve TR Peak Ntuqgdyl340et/sRAP [id number] Peak Gr.54mmHg [id number] LEFT VENTRICLE The left ventricle is normal size. There is mild concentric left ventricular hypertrophy. The left ventricular function is normal. The left ventricular ejection fraction is within the normal range. There is normal LV segmental wall motion. RIGHT VENTRICLE The right ventricle is normal size. ATRIA The left atrium is moderately dilated. The right atrium size is normal. The interatrial septum is intact with no evidence for an atrial septal defect. AORTIC VALVE The aortic valve is mildly thickened. MITRAL VALVE The mitral valve is normal in structure. Mitral annular calcification is mild to moderate. Mitral regurgitation is mild. TRICUSPID VALVE The tricuspid valve is normal in structure. There is moderate tricuspid regurgitation. There is moderate-severe pulmonary hypertension. PULMONIC VALVE The pulmonary valve is normal in structure. GREAT VESSELS The aortic root is normal in size. PERICARDIAL EFFUSION PLeural effusion present There is no pericardial effusion. <Conclusion> The left ventricle is normal size. There is mild concentric left ventricular hypertrophy. The left ventricular function is normal. Mitral regurgitation is mild. There is moderate tricuspid regurgitation. There is moderate-severe pulmonary hypertension. PLeural effusion present
--- NOTE | 2017-04-24 09:25 | CARD ---
APPROVED REPORT EKG Measurement Heart [id number] <Conclusion> Atrial fibrillation with rapid ventricular response STTW changes c/w ischemia Prolonged QTc Baseline artifact present
--- NOTE | 2017-04-24 09:33 | CARD ---
APPROVED REPORT EKG Measurement Heart [id number] <Conclusion> Normal sinus rhythm, new Possible Anterior infarct, age undetermined NSSTW changes Electrical artifact present
[2017-04-24 09:56] LABS: TROPONIN I 0.23 ng/mL
[2017-04-24] MEDS ORDERED: NEBIVOLOL 20 MG PO SCH (10:00)
--- NOTE | 2017-04-24 11:00 | PN ---
DATE: 04/24/2017 SUBJECTIVE: I saw the patient in the intensive care unit with her daughter. She has the BiPAP mask on. She is distressed and crying. She is a little short of breath. She has multiple issues right now. PHYSICAL EXAMINATION GENERAL: She is uncomfortable, mostly talking through the family. VITAL SIGNS: She has a 98.1 temp, 105 pulse, 178/82 blood pressure, 18 respiratory rate, and 100% O2 saturation on 50% FiO2 BiPAP. HEENT: Head is atraumatic and normocephalic. HEART: Regular rate. LUNGS: Decreased breath sounds bilaterally. Mild congestion. ABDOMEN: Soft. EXTREMITIES: No edema. LABORATORY DATA: She has a 9.8 white count, it is getting better. Hemoglobin dropped to 6.2. She is quite anemic. She is going to be transfused 2 units of packed red blood cells today. Hematocrit is 21.6, platelets 199. She has a 149 sodium, potassium 3.4, she will need some potassium replacement. BUN 27, creatinine 1.5, getting better. GFR is 33. Sugar is 70, calcium is 8.6, total iron binding capacity is 359, and she has a low iron of 26. Troponin of 0.23, elevated and 5880 is her BNP with a 6.1 total protein. Urine with moderate bacteria. She is being seen by the broommaking supervisor, pulmonary, GI. She had a CAT scan of the chest, abdomen, and pelvis which showed a lot of things. No evidence of retroperitoneal hemorrhage. She has a moderate-sized pleural effusion on the right. In her thyroid, there could be a thyroid mass. MEDICATIONS: He is on a lot of medications. He is on Colcrys, Diovan, heparin, Bystolic, insulin, Lasix IV twice a day 40 mg, Protonix 40 mg IV b.i.d., Rocephin IV, Xopenex, azithromycin IV, Zyloprim. We will continue with aggressive treatment and care in the intensive care unit. She has consults with cardio, GI, pulmonary, and the broommaking supervisor. We will watch very closely. I discussed with the family, they want to make DNR, DNI, and I will call on Dr. Tab Decker for possible aspiration of the pleural effusion. Dr. Larios dictating on the patient who has CHF, pneumonia, anemia, renal insufficiency, acute respiratory failure, UTI, possibly cancer. Gumaro Larios DO
--- NOTE | 2017-04-24 11:34 | RAD ---
HISTORY: resp status COMPARISON: 04/23/2017 FINDINGS: LUNGS: There is increasing vascular congestion and bilateral infiltrates consistent with CHF. PLEURA: Increasing small right pleural effusion CARDIOVASCULAR: Mild cardiomegaly OSSEOUS STRUCTURES: No significant abnormalities. VISUALIZED UPPER ABDOMEN: Normal. OTHER FINDINGS: None. IMPRESSION: Slight increase in CHF
--- NOTE | 2017-04-24 13:14 | CP.PCM.PN ---
<GABRIELE SMITHMALIJELENA - Last Filed: 04/24/17 17:09> Subjective - Date & Time of Evaluation Date of Evaluation: 04/24/17 Time of Evaluation: 07:30 - Subjective Subjective: Omid Smith DO PGY1 - ICU Progress Note Patient seen and examined at bedside. No acute events reported overnight. Patient is acutely anemic this AM, consented for blood transfusion. Patient currently denies any CP, abdominal pain, f/c, n/v/d/c. Is complaining of some SOB while on O2 by nasal cannula, which improves on BIPAP. She slept well overnight on BIPAP. Patient was informed by her PCP that her new scan could possibly indicate malignancy, and that further testing would have to be done to elucidate. With daughter at bedside, discussed resuscitation status with patient and her daughter, and patient explicitly verbalized no desire for heroic or invasive measures including large central IV lines, intubation, chest compressions, or shocks. Objective - Vital Signs/Intake and Output Vital Signs (last 24 hours): Temp Pulse Resp BP Pulse Ox 98.7 F 94 H 62 H 165/90 H 100 04/24/17 12:00 04/24/17 12:40 04/24/17 12:40 04/24/17 12:00 04/24/17 12:40 Intake and Output: 04/24/17 04/24/17 06:59 18:59 Intake Total 0 0 Output Total 1000 Balance -1000 0 - Medications Medications: Current Medications Allopurinol (Zyloprim) 100 mg PO DAILY [facility] Last Admin: 04/24/17 09:01 Dose: 100 mg Colchicine (Colocrys) 0.6 mg PO DAILY [facility] Last Admin: 04/24/17 09:17 Dose: 0.6 mg Furosemide (Lasix) 40 mg IVP BID [facility] Last Admin: 04/24/17 09:21 Dose: 40 mg Heparin Sodium (Porcine) (Heparin) 5,000 units SC Q12 [facility] PRN Reason: Protocol Last Admin: 04/23/17 22:16 Dose: 5,000 units Ceftriaxone Sodium (Rocephin 1 Gram Ivpb) 1 gm in 100 mls @ 100 mls/hr IVPB DAILY [facility] PRN Reason: Protocol Last Admin: 04/24/17 09:02 Dose: 100 mls/hr Azithromycin (Zithromax 500mg In Ns) 500 mg in 250 mls @ 167 mls/hr IVPB DAILY [facility] PRN Reason: Protocol Last Admin: 04/24/17 09:10 Dose: 167 mls/hr Insulin Human Regular (Humulin R High) 0 units SC ACHS [facility] PRN Reason: Protocol Last Admin: 04/24/17 11:30 Dose: Not Given Levalbuterol HCl (Xopenex) 0.63 mg IH [id number] [facility] Last Admin: 04/24/17 07:25 Dose: 0.63 mg Levalbuterol HCl (Xopenex) 0.63 mg IH Q2 PRN PRN Reason: Shortness of Breath Home Med (Nebivolol ([Bystolic] 20 Mg)) 20 mg PO DAILY [facility] Pantoprazole Sodium (Protonix Inj) 40 mg IVP Q12 [facility] Last Admin: 04/24/17 09:02 Dose: 40 mg Pantoprazole Sodium (Protonix Ec Tab) 40 mg PO 0600 [facility] Valsartan (Diovan) 320 mg PO DAILY [facility] Last Admin: 04/24/17 09:01 Dose: 320 mg - Labs Labs: 04/24/17 06:00 04/24/17 06:00 PT 11.1 Seconds (9.9-11.8) 04/23/17 09:35 INR 1.03 (0.93-1.08) 04/23/17 09:35 APTT 18.4 Seconds (23.7-30.8) L 04/23/17 09:35 - Constitutional Appears: Non-toxic, No Acute Distress - Head Exam Head Exam: ATRAUMATIC, NORMOCEPHALIC - Eye Exam Eye Exam: EOMI, Normal appearance - ENT Exam ENT Exam: Mucous Membranes Moist - Neck Exam Neck Exam: Normal Inspection - Respiratory Exam Respiratory Exam: Decreased Breath Sounds, Rales, Wheezes - Cardiovascular Exam Cardiovascular Exam: RRR, +S1, +S2 - GI/Abdominal Exam GI & Abdominal Exam: Soft. absent: Firm, Guarding, Tenderness - Extremities Exam Extremities Exam: Pedal Edema (4+ pitting edema bilaterally to mid thigh) - Back Exam Back Exam: absent: CVA tenderness (L), CVA tenderness (R) - Neurological Exam Neurological Exam: Alert, Awake, Oriented x3 - Psychiatric Exam Psychiatric exam: Normal Affect, Normal Mood - Skin Skin Exam: Dry, Intact, Normal Color Assessment and Plan - Assessment and Plan (Free Text) Assessment: 81 yo F with PMH of HTN and DM admitted to the ICU for hypoxic respiratory failure 2/2 CHF exacerbation, and acute anemia likely 2/2 GI bleed. Found to have infiltrate vs malignancy vs adenopathy on chest CT, workup pending. Neuro: - AAOx3, mentating normally - Continue to monitor mental status Cardio: - Echo read shows normal LVEF, but moderate-severe pulm HTN. Patient denies history of CHF, but likely has acute decompensated right heart failure - EKG shows possible age indeterminate anterior AR. Patient is not currently a candidate for thombolytic or anticoagulation therapy due to likely active GI bleed - First trop indeterminate, second trop this AM positive (0.23), will continue to trend - First BNP >4000, second BNP >5000, likely secondary to acute right heart failure - On Lasix 40 Q12, maintaining negative balance - H/o HTN, on Valsartan 320 and Nebivolol 20 at home. - Continue valsartan, metoprolol - Maintain mean BP>60 - Cardio (Janusz) consulted, all recs appreciated Pulm: - On BIPAP 12/6 overnight, tolerated well, maintained sat - Alternating between nasal cannula and BIPAP throughout the day, still getting SOB when off BIPAP, but is able to tolerate NC for conversations and meals - Did not tolerate chest CT yesterday due to orthopnea. Chest CT today shows b/ l perihilar fullness (mass vs adenopathy vs infiltrate, unable to differentiate because noncontrast), as well as moderate-large right pleural effusion and minimal left pleural effusion. Also shows thyroid mass (goiter vs malignancy vs adenopathy). - IR (Dr. Decker) consulted for thoracentesis to determine nature of pleural effusion - Pulm (Aleyda) consulted, all recs appreciated GI: - Tolerating PO, but will make NPO due to requirement for BIPAP, will monitor and reevaluate - Upper GI bleed per history of melena - CT abdomen shows no acute abnormalities, no retroperitoneal hemorrhage - GI (Nehal) consulted, all recs appreciated - GI Ppx Protonix Renal: - PAULA improving - On lasix 40Q12, maintaining urine output and negative balance - Monitor electrolytes and replete as needed Endo: - H/o DM, hold oral hypoglycemics - Accuchecks ACHS and SSI HIGH - Maintain euglycemia Hem/Onc: - Acute anemia, likely 2/2 to GI bleed per history of melena, GI consulted - Will transfuse 1u PRBC today, recheck CBC - Iron studies show iron deficiency anemia, consistent with GI bleed - CT shows multiple possibly malignancies, IR consulted to elucidate nature of pleural effusion - Consider hem/onc consult, further workup after medically stable - Continue to monitor Ppx: protonix, SCDs Patient seen and discussed with attending <Rajinder FRANCO,Graham H - Last Filed: 04/24/17 17:57> Objective - Vital Signs/Intake and Output Vital Signs (last 24 hours): Temp Pulse Resp BP Pulse Ox 98.8 F 76 32 H 174/90 H 100 04/24/17 13:42 04/24/17 17:00 04/24/17 13:42 04/24/17 17:33 04/24/17 12:40 Intake and Output: 04/24/17 04/24/17 06:59 18:59 Intake Total 0 375 Output Total 1000 Balance -1000 375 - Medications Medications: Current Medications Allopurinol (Zyloprim) 100 mg PO DAILY [facility] Last Admin: 04/24/17 09:01 Dose: 100 mg Colchicine (Colocrys) 0.6 mg PO DAILY [facility] Last Admin: 04/24/17 09:17 Dose: 0.6 mg Furosemide (Lasix) 40 mg IVP BID [facility] Last Admin: 04/24/17 17:33 Dose: 40 mg Heparin Sodium (Porcine) (Heparin) 5,000 units SC Q12 [facility] PRN Reason: Protocol Last Admin: 04/23/17 22:16 Dose: 5,000 units Ceftriaxone Sodium (Rocephin 1 Gram Ivpb) 1 gm in 100 mls @ 100 mls/hr IVPB DAILY [facility] PRN Reason: Protocol Last Admin: 04/24/17 09:02 Dose: 100 mls/hr Azithromycin (Zithromax 500mg In Ns) 500 mg in 250 mls @ 167 mls/hr IVPB DAILY [facility] PRN Reason: Protocol Last Admin: 04/24/17 09:10 Dose: 167 mls/hr Insulin Human Regular (Humulin R High) 0 units SC ACHS [facility] PRN Reason: Protocol Last Admin: 04/24/17 17:13 Dose: Not Given Levalbuterol HCl (Xopenex) 0.63 mg IH [id number] [facility] Last Admin: 04/24/17 13:24 Dose: 0.63 mg Levalbuterol HCl (Xopenex) 0.63 mg IH Q2 PRN PRN Reason: Shortness of Breath Pantoprazole Sodium (Protonix Inj) 40 mg IVP Q12 [facility] Last Admin: 04/24/17 09:02 Dose: 40 mg Pantoprazole Sodium (Protonix Ec Tab) 40 mg PO 0600 [facility] Valsartan (Diovan) 320 mg PO DAILY [facility] Last Admin: 04/24/17 09:01 Dose: 320 mg - Labs Labs: 04/24/17 16:00 04/24/17 06:00 PT 11.1 Seconds (9.9-11.8) 04/23/17 09:35 INR 1.03 (0.93-1.08) 04/23/17 09:35 APTT 18.4 Seconds (23.7-30.8) L 04/23/17 09:35 Attending/Attestation - Attestation I have personally seen and examined this patient.: Yes I have fully participated in the care of the patient.: Yes I have reviewed all pertinent clinical information, including history, physical exam and plan: Yes Notes (Text): 04/24/17 17:56 81 y/o F w/ Acute Pulmonary edema on BIPAP and Diuretics. Received 100mg lasix and BIPAP q 4hrs and is currently feeling much better. 2L urine output in [address] chest did show neck/ thyroid mas or goiter that would need further investigation. B/L enlarged lymph nodes and b/l Pleural effusions. Cardiac medications to start once off bipap. HTn controlled. Diet restarted as tolerated. DNR/DNI DVT P cc time 55 min
[2017-04-24 16:41] LABS: BASO # 0.02 K/mm3 (0.0-2.0); BASO % 0.2 % (0.0-3.0); EOS # 0.2 (0.0-0.7); EOS % 1.6 % (1.5-5.0); GRAN # 9.33 (1.4-6.5); GRAN % 85.1 % (50.0-68.0); HEMOGLOBIN 8.1 gm/dL (12.0-16.0); LYMPH # 0.4 (1.2-3.4); LYMPH % 3.8 % (22.0-35.0); MEAN CELL VOLUME 69.7 fL (80.0-105.0); MEAN CORPUSCULAR HEMOGLOBIN 20.5 pg (25.0-35.0); MEAN CORPUSCULAR HGB CONC 29.3 g/dl (31.0-37.0); MONO % 9.3 % (1.0-6.0); PLATELET COUNT 197 10^3/uL (120.0-450.0); RBC 3.96 10^6/uL (3.5-6.1); RED CELL DISTRIBUTION WIDTH 22.5 % (11.5-14.5)
[2017-04-24] MEDS: Metoprolol 1 mg/ml Inj IVP PRN (20:33)
[2017-04-25] MEDS: Levalbuterol 0.63 MG/3 ML Inhal Soln UD IH SCH ×4 (02:30→20:42)
[2017-04-25] MEDS: Pantoprazole 40 mg EC Tab PO SCH (05:57)
[2017-04-25] MEDS: Metoprolol 1 mg/ml Inj IVP PRN ×3 (06:06→22:49)
[2017-04-25 07:08] LABS: BASO # 0.03 K/mm3 (0.0-2.0); BASO % 0.3 % (0.0-3.0); EOS # 0.4 (0.0-0.7); EOS % 3.8 % (1.5-5.0); GRAN # 8.23 (1.4-6.5); GRAN % 80.1 % (50.0-68.0); LYMPH # 0.7 (1.2-3.4); LYMPH % 6.9 % (22.0-35.0); MEAN CELL VOLUME 69.6 fL (80.0-105.0); MEAN CORPUSCULAR HGB CONC 28.7 g/dl (31.0-37.0); MONO # 0.9 (0.1-0.6); MONO % 8.9 % (1.0-6.0); PLATELET COUNT 188 10^3/uL (120.0-450.0); RBC 3.75 10^6/uL (3.5-6.1); RED CELL DISTRIBUTION WIDTH 22.8 % (11.5-14.5); WHITE BLOOD COUNT 10.3 10^3/ul (4.5-11.0)
--- NOTE | 2017-04-25 07:20 | PN ---
DATE: 04/25/2017 SUBJECTIVE: The patient appears comfortable this morning. She is mildly short of breath but in no acute distress. PHYSICAL EXAMINATION: VITAL SIGNS: Temperature is 98.4, pulse on the monitor is 84, respiratory rate 20/22, blood pressure 171/76. Oxygen saturation on nasal cannula is 100%. HEENT: Normocephalic, atraumatic. NECK: No JVD. CARDIOVASCULAR: Systolic ejection murmur at the lower left sternal border. Positive S3 gallop. LUNGS: Decreased breath sounds at the bases with crackles. Less rhonchi. No wheezing. EXTREMITIES: Less edema. No cyanosis, no clubbing. Calves are nontender to palpation. GASTROINTESTINAL: Abdomen is soft, nontender, and nondistended. Bowel sounds are positive. SKIN: No acute rash. NEUROLOGIC: Limited at the present time. PERTINENT LABORATORY DATA: CAT scan of the chest was done yesterday and reviewed. There are ground-glass infiltrates bilaterally most consistent with pulmonary edema. There is also a moderate size right pleural effusion and a smaller left pleural effusion. There is no lymphadenopathy. IMPRESSION: 1. Acute congestive heart failure. 2. Bilateral pleural effusions. 3. Acute bronchitis. 4. Anemia. 5. Renal insufficiency. PLAN: The patient appears more comfortable this morning. She is mildly short of breath but in no acute distress. I did discuss the case with the night nurse at length. The night nurse stated the patient had a very good night. I did order a chest x-ray for the morning. The x-ray has not been done as of yet. The patient did have a CAT scan of the chest done yesterday. Findings of the CAT scan of the chest are most consistent with congestive heart failure with bilateral pleural effusions (right worse than left). Again, there is no lymphadenopathy noted. I would continue with the treatment for congestive heart failure as per cardiology. The patient remains on intervenous Lasix. GI evaluation is also noted-because the anemia. On physical exam, there is less bronchospasm noted. I addition, the oxygen saturation on nasal cannula is now 100%. I would continue with the current nebulizer treatments for now. Repeat a.m. labs are pending. Clinical status of the patient is significantly improved. I will discuss the above with the entire ICU team in the next few moments. I will also discuss the above with Dr. Larios in the next few moments. Pascual Maynard MD [facility]
[2017-04-25 07:32] LABS: HEMOGLOBIN 7.5 gm/dL (12.0-16.0)
--- NOTE | 2017-04-25 07:33 | RAD ---
HISTORY: follow up COMPARISON: Portable chest 04/24/2017. FINDINGS: LUNGS: Limited left basilar atelectasis or infiltrate persists with a small pleural effusion unchanged. Minimal right pleural effusion is identified, reduced in the interval. Right perihilar patchy density is diminished. PLEURA: Limited bilateral pleural effusions are identified, reduced at the right unchanged at the left. No pneumothorax. CARDIOVASCULAR: Pulmonary venous congestion pattern appears somewhat improved. OSSEOUS STRUCTURES: No significant abnormalities. VISUALIZED UPPER ABDOMEN: Normal. OTHER FINDINGS: None. IMPRESSION: Diminishing CHF pattern. Right pleural effusion diminished. Minimal left pleural effusion unchanged. Left basilar atelectasis or infiltrate unchanged.
[2017-04-25] MEDS: Insulin Reg-HIGH-Coverage SC SCH ×4 (07:47→22:30)
[2017-04-25] MEDS: cefTRIAXone 1 gm 1 GM/100 ML BAG IVPB SCH (09:10)
[2017-04-25] MEDS: Azithromycin 500MG/NS 250ml 500 MG/250 ML BAG IVPB SCH (09:12)
--- NOTE | 2017-04-25 09:20 | CON ---
DATE: 04/24/2017 CARDIOLOGY CONSULTATION REASON FOR CONSULTATION: Shortness of breath and elevated troponin. HISTORY OF PRESENT ILLNESS: The patient is 81 years old female who has a history of hypertension, who was recently admitted to [facility] presented because of shortness of breath. The patient was found to have significant bilateral pleural effusion and significant lymphadenopathy on chest CT scan. Cardiac enzymes were borderline elevated. The patient denies any chest pain and is unaware of any recent history of heart attack. SOCIAL HISTORY: Nonsmoker. MEDICATIONS: Colchicine 0.6 mg daily, Diovan 320 mg once a day, subcutaneous heparin is currently on hold, Lasix 40 mg intravenous twice a day, Protonix 40 mg intravenous twice a day, Rocephin 1 mg intravenous daily, Xopenex inhaler q. 6 hours p.r.n., Zithromax 500 mg intravenously daily, Zyloprim 100 mg daily. REVIEW OF SYSTEMS: No reported hematemesis or melena. The patient is unaware of any fever or chills. PHYSICAL EXAMINATION: GENERAL: The patient is an elderly female who is currently tachypneic and lying on her left side because of her breathing comfort. VITAL SIGNS: Blood pressure 165/90, heart rate 101, temperature 98.3, respiration 28. HEENT: Pale conjunctiva. CHEST: Absent breath sounds over both bases. HEART: S1 and S2 regular. ABDOMEN: Soft. EXTREMITIES: 1+ pitting edema. LABORATORY DATA: Hemoglobin and hematocrit 6.2 and 21.6, admitting hemoglobin and hematocrit yesterday were 8.0 and 27.2. Today's white count 9.8, today's platelet count 199,000. SMA-7: Sodium 146, potassium 3.4, chloride 111, CO2 of 26, glucose 70, BUN 27, creatinine 1.5. Troponin 0.23. ProBNP is 5880. INR is 1.03, PTT 18.4. EKG reveals sinus rhythm with nonspecific ST-T wave changes. I did review the echocardiographic study, which revealed moderate concentric LVH with normal systolic function, [id number] pulmonary hypertension. Echo shadow was noted during the study, which is most likely extra cardiac and can be artifactual. ASSESSMENT: 1. Possible non-ST elevation myocardial infarction function. 2. Rule out pulmonary infarction. 3. Nuvardez-zh-wjweyh pulmonary hypertension. 4. Significant anemia. 5. Rule out underlying malignancy. 6. Bilateral pleural effusions. 7. Uncontrolled systemic hypertension. RECOMMENDATIONS: Case was discussed with nailer machine, Dr. Calvillo. Continue current Diovan at 320 mg once a day and intravenous Lasix is 40 mg twice a day. Continue IV Rocephin and IV Zithromax. Continue current bronchodilators. The patient has signed to do not resuscitate order and conservative medical approach is justified. Lan Mcgovern MD
--- NOTE | 2017-04-25 10:20 | CP.PCM.PN ---
Subjective - Date & Time of Evaluation Date of Evaluation: 04/25/17 Time of Evaluation: 10:12 - Subjective Subjective: Patient seen and examined, resting comfortably in bed, family at bedside. No acute events overnight. She denies abdominal pain, nausea, vomiting, fever/ chills. Tolerating PO diet without difficulty. Review of vitals from today shows elevated BP. 12 point review of systems performed, negative aside from mentioned above. Objective - Vital Signs/Intake and Output Vital Signs (last 24 hours): Temp Pulse Resp BP Pulse Ox 98.3 F 84 17 185/86 H 100 04/25/17 07:32 04/25/17 09:50 04/25/17 09:50 04/25/17 09:12 04/25/17 09:50 Intake and Output: 04/25/17 04/25/17 06:59 18:59 Intake Total 200 Output Total 1550 Balance -1350 - Medications Medications: Current Medications Allopurinol (Zyloprim) 100 mg PO DAILY [facility] Last Admin: 04/25/17 09:13 Dose: 100 mg Colchicine (Colocrys) 0.6 mg PO DAILY [facility] Last Admin: 04/25/17 09:14 Dose: 0.6 mg Furosemide (Lasix) 40 mg IVP BID [facility] Last Admin: 04/25/17 09:12 Dose: 40 mg Heparin Sodium (Porcine) (Heparin) 5,000 units SC Q12 [facility] PRN Reason: Protocol Last Admin: 04/23/17 22:16 Dose: 5,000 units Ceftriaxone Sodium (Rocephin 1 Gram Ivpb) 1 gm in 100 mls @ 100 mls/hr IVPB DAILY [facility] PRN Reason: Protocol Last Admin: 04/25/17 09:10 Dose: 100 mls/hr Azithromycin (Zithromax 500mg In Ns) 500 mg in 250 mls @ 167 mls/hr IVPB DAILY [facility] PRN Reason: Protocol Last Admin: 04/25/17 09:12 Dose: 167 mls/hr Potassium Chloride (Potassium Chloride 10 Meq/100 Ml) 10 meq in 100 mls @ 100 mls/hr IVPB Q2H [facility] Stop: 04/25/17 14:14 Last Admin: 04/25/17 09:15 Dose: 100 mls/hr Insulin Human Regular (Humulin R High) 0 units SC ACHS [facility] PRN Reason: Protocol Last Admin: 04/25/17 07:47 Dose: Not Given Levalbuterol HCl (Xopenex) 0.63 mg IH [id number] [facility] Last Admin: 04/25/17 09:11 Dose: 0.63 mg Levalbuterol HCl (Xopenex) 0.63 mg IH Q2 PRN PRN Reason: Shortness of Breath Metoprolol Tartrate (Lopressor) 5 mg IVP Q6H PRN PRN Reason: Systolic >160 diastolic >100 Last Admin: 04/25/17 06:06 Dose: 5 mg Pantoprazole Sodium (Protonix Ec Tab) 40 mg PO 0600 [facility] Last Admin: 04/25/17 05:57 Dose: 40 mg Valsartan (Diovan) 320 mg PO DAILY [facility] Last Admin: 04/25/17 09:13 Dose: 320 mg - Labs Labs: 04/25/17 06:10 04/24/17 06:00 PT 11.1 Seconds (9.9-11.8) 04/23/17 09:35 INR 1.03 (0.93-1.08) 04/23/17 09:35 APTT 18.4 Seconds (23.7-30.8) L 04/23/17 09:35 - Constitutional Appears: Non-toxic, No Acute Distress - Head Exam Head Exam: NORMAL INSPECTION - Eye Exam Eye Exam: EOMI, Normal appearance - ENT Exam ENT Exam: Mucous Membranes Moist - Respiratory Exam Respiratory Exam: Decreased Breath Sounds Additional comments: bilateral bases - Cardiovascular Exam Cardiovascular Exam: +S1, +S2 - GI/Abdominal Exam GI & Abdominal Exam: Soft, Normal Bowel Sounds Additional comments: non tender to palpation in four quadrants - Rectal Exam Additional comments: soft brown stool present on rectal exam, no blood in rectal vault - Extremities Exam Extremities Exam: Pedal Edema - Skin Skin Exam: Dry, Intact, Normal Color, Warm Assessment and Plan - Assessment and Plan (Free Text) Assessment: Dyspnea, acute CHF exacerbation NSTEMI HTN / DM Microcytic anemia - normal soft brown stool on rectal examination today Plan: - Diet as tolerated - Continue with PPI therapy - H/H stable, continue to monitor, no overt bleeding noted - Follow up cardiology recommendations - Continue with antibiotic therapy as per pulmonary recommendations - Case discussed with patient and daughter at bedside. Suggest outpatient endoscopic evaluation for anemia following resolution of acute cardiac issues. Office contact information provided to patient. Will sign off case, please reconsult as necessary, thank you.
[2017-04-25 10:51] LABS: ALB/GLOB RATIO 1.2 (1.1-1.8); ALBUMIN 3.4 g/dL (3.0-4.8); CALCIUM 8.5 mg/dL (8.4-10.5)
[2017-04-25 11:13] LABS: TROPONIN I 0.31 ng/mL
--- NOTE | 2017-04-25 11:19 | PN ---
DATE: 04/25/2017 SUBJECTIVE: She is in the intensive care unit, she is on nasal cannula. She is doing a little bit better than when she came in. She is still upset. PHYSICAL EXAMINATION: VITAL SIGNS: 98.3 temperature, 76 pulse, 185/86 blood pressure, 16 respiratory rate, and 100% O2 sat on 3 L nasal cannula. HEENT: Head is atraumatic and normocephalic. Throat is moist. NECK: Supple. HEART: Regular rate. LUNGS: Decreased breath sounds, but clear. ABDOMEN: Soft. EXTREMITIES: Less edema trace. MEDICATIONS: She is currently on Colcrys, Diovan, heparin, insulin, Lasix 40 IV b.i.d., metoprolol, potassium replacement, Protonix, ceftriaxone IV, Xopenex, azithromycin IV, and Zyloprim. LABORATORY DATA: White count is down to 10.3 and hemoglobin is 7.5, after 2 units of packed red blood cells, I am going to transfuse her again. Hematocrit is 26.1 and platelets are 188. She has a 149 sodium yesterday, 3.4 potassium yesterday, BUN is 27, and creatinine is 1.5 yesterday this morning unless blood sugar was 91 and troponin was 0.23 and BNP was high at 5880. ASSESSMENT AND PLAN: She is being seen by Pulmonary, Cardiology, scrip clerk, and Gastrointestinal. She is quite anemic, congestive heart failure, pneumonia, renal insufficiency, urinary tract infection, acute respiratory failure and be transfused 2 more units today. Gumaro Larios DO MTDD
--- NOTE | 2017-04-25 14:41 | PN ---
CARDIOLOGY CONSULTATION DATE OF CONSULTATION: 04/25/2017. HISTORY OF PRESENT ILLNESS: The patient is in bed. Her breathing is improved. No chest pain noted. PHYSICAL EXAMINATION VITAL SIGNS: Blood pressure is 184/94, the heart rate is in the 80s and normal sinus rhythm. NECK: Negative JVD. LUNGS: Without rales. HEART: Reveals S1 and S2. EXTREMITIES: Without edema. LABORATORY DATA: The hemoglobin is 7.5 and troponin is 0.31. IMPRESSION: 1. Status post congestive heart failure. 2. Nsw-WE-xshasei elevation myocardial infarction. 3. Marked anemia. 4. Hypertension. 5. Moderate to severe pulmonary hypertension. PLAN: 1. Given these findings, I agree with the packed red blood cells. 2. The patient is currently DNR. I will re-discuss with the family about potential therapeutic options once a hemoglobin is stabilized which may include cardiac catheterization. If this is fell, her DNR will need to be rescinded. Tab Boudreaux MD
--- NOTE | 2017-04-25 19:06 | CP.PCM.PN ---
<Isaiah Thorne - Last Filed: 04/27/17 00:46> Subjective - Date & Time of Evaluation Date of Evaluation: 04/25/17 Time of Evaluation: 11:00 - Subjective Subjective: Patient seen and examined at bedside. No acute or adverse events overnight as per Nursing staff. Patient currently denies any CP, abdominal pain, f/c, n/v/d/ c. Is complaining of some SOB while on O2 by nasal cannula, which improves on BIPAP. Objective - Vital Signs/Intake and Output Vital Signs (last 24 hours): Temp Pulse Resp BP Pulse Ox 98.6 F 79 20 186/93 H 99 04/25/17 18:33 04/25/17 18:33 04/25/17 18:33 04/25/17 18:33 04/25/17 13:40 Intake and Output: 04/25/17 04/25/17 06:59 18:59 Intake Total 200 550 Output Total 1550 650 Balance -1350 -100 - Medications Medications: Current Medications Allopurinol (Zyloprim) 100 mg PO DAILY [facility] Last Admin: 04/25/17 09:13 Dose: 100 mg Colchicine (Colocrys) 0.6 mg PO DAILY [facility] Last Admin: 04/25/17 09:14 Dose: 0.6 mg Furosemide (Lasix) 40 mg IVP BID [facility] Last Admin: 04/25/17 17:49 Dose: 40 mg Heparin Sodium (Porcine) (Heparin) 5,000 units SC Q12 [facility] PRN Reason: Protocol Last Admin: 04/23/17 22:16 Dose: 5,000 units Ceftriaxone Sodium (Rocephin 1 Gram Ivpb) 1 gm in 100 mls @ 100 mls/hr IVPB DAILY [facility] PRN Reason: Protocol Last Admin: 04/25/17 09:10 Dose: 100 mls/hr Azithromycin (Zithromax 500mg In Ns) 500 mg in 250 mls @ 167 mls/hr IVPB DAILY [facility] PRN Reason: Protocol Last Admin: 04/25/17 09:12 Dose: 167 mls/hr Insulin Human Regular (Humulin R High) 0 units SC ACHS [facility] PRN Reason: Protocol Last Admin: 04/25/17 17:36 Dose: Not Given Levalbuterol HCl (Xopenex) 0.63 mg IH [id number] [facility] Last Admin: 04/25/17 13:31 Dose: 0.63 mg Levalbuterol HCl (Xopenex) 0.63 mg IH Q2 PRN PRN Reason: Shortness of Breath Metoprolol Tartrate (Lopressor) 5 mg IVP Q6H PRN PRN Reason: Systolic >160 diastolic >100 Last Admin: 04/25/17 14:24 Dose: 5 mg Pantoprazole Sodium (Protonix Ec Tab) 40 mg PO 0600 [facility] Last Admin: 04/25/17 05:57 Dose: 40 mg Valsartan (Diovan) 320 mg PO DAILY [facility] Last Admin: 04/25/17 09:13 Dose: 320 mg - Labs Labs: 04/25/17 06:10 04/25/17 10:37 PT 11.1 Seconds (9.9-11.8) 04/23/17 09:35 INR 1.03 (0.93-1.08) 04/23/17 09:35 APTT 18.4 Seconds (23.7-30.8) L 04/23/17 09:35 - Constitutional Appears: No Acute Distress - Head Exam Head Exam: ATRAUMATIC, NORMAL INSPECTION, NORMOCEPHALIC - Eye Exam Eye Exam: EOMI, Normal appearance, PERRL Pupil Exam: NORMAL ACCOMODATION, PERRL - ENT Exam ENT Exam: Mucous Membranes Moist, Normal Exam - Respiratory Exam Respiratory Exam: Decreased Breath Sounds, Clear to Ausculation Bilateral, NORMAL BREATHING PATTERN - Cardiovascular Exam Cardiovascular Exam: REGULAR RHYTHM, +S1, +S2. absent: Murmur - GI/Abdominal Exam GI & Abdominal Exam: Soft, Normal Bowel Sounds. absent: Tenderness - Extremities Exam Extremities Exam: Full ROM, Normal Capillary Refill, Normal Inspection, Pedal Edema. absent: Joint Swelling - Neurological Exam Neurological Exam: Alert, Awake, CN II-XII Intact, Normal Gait, Oriented x3 - Psychiatric Exam Psychiatric exam: Normal Affect, Normal Mood - Skin Skin Exam: Dry, Intact, Normal Color, Warm Assessment and Plan - Assessment and Plan (Free Text) Assessment: 81 yo F with PMH of HTN and DM admitted to the ICU for hypoxic respiratory failure 2/2 CHF exacerbation, and acute anemia likely 2/2 GI bleed. Found to have infiltrate vs malignancy vs adenopathy on chest CT. Neuro: - AAOx3, mentating normally - Continue to monitor mental status Cardio: - Echo normal LVEF, but moderate-severe pulm HTN. Patient denies history of CHF , but likely has acute decompensated right heart failure - not currently a candidate for thombolytic or anticoagulation therapy due to likely active GI bleed - First trop indeterminate, second trop this AM positive (0.23), will continue to trend - On Lasix 40 Q12, maintaining negative balance - H/o HTN, on Valsartan 320 and Nebivolol 20 at home. - Continue valsartan, metoprolol - Maintain mean BP>60 - Cardio (Janusz) consulted, all recs appreciated Pulm: - On BIPAP 12/6 overnight, tolerated well, maintained sat - Chest CT today shows b/l perihilar fullness (mass vs adenopathy vs infiltrate , unable to differentiate because noncontrast), as well as moderate-large right pleural effusion and minimal left pleural effusion. Also shows thyroid mass ( goiter vs malignancy vs adenopathy). - IR (Dr. Decker) consulted for thoracentesis to determine nature of pleural effusion - Pulm (Aleyda) consulted, all recs appreciated GI: - Tolerating PO, but will make NPO due to requirement for BIPAP, will monitor and reevaluate - Upper GI bleed per history of melena - CT abdomen shows no acute abnormalities, no retroperitoneal hemorrhage - GI (Nehal) consulted, all recs appreciated - GI Ppx Protonix Renal: - PAULA improving - On lasix 40Q12, maintaining urine output and negative balance - Monitor electrolytes and replete as needed Endo: - H/o DM, hold oral hypoglycemics - Accuchecks ACHS and SSI HIGH - Maintain euglycemia Hem/Onc: - Acute anemia, likely 2/2 to GI bleed per history of melena, GI consulted - Will transfuse 1u PRBC today, recheck CBC - Iron studies show iron deficiency anemia, consistent with GI bleed - CT shows multiple possibly malignancies, IR consulted to elucidate nature of pleural effusion - Consider hem/onc consult, further workup after medically stable - Continue to monitor Ppx: protonix, SCDs Patient seen and discussed with attending <Cyrus Hernandez - Last Filed: 04/27/17 11:58> Objective - Vital Signs/Intake and Output Vital Signs (last 24 hours): Temp Pulse Resp BP Pulse Ox 98.6 F 82 20 186/86 H 99 04/27/17 06:00 04/27/17 09:40 04/27/17 06:00 04/27/17 09:40 04/27/17 06:00 Intake and Output: 04/27/17 04/27/17 06:59 18:59 Intake Total 520 Output Total 750 Balance -230 - Medications Medications: Current Medications Allopurinol (Zyloprim) 100 mg PO DAILY [facility] Last Admin: 04/26/17 09:44 Dose: 100 mg Amlodipine Besylate (Norvasc) 5 mg PO DAILY [facility] Last Admin: 04/27/17 09:40 Dose: 5 mg Clopidogrel Bisulfate (Plavix) 75 mg PO DAILY [facility] Furosemide (Lasix) 40 mg IVP BID [facility] Last Admin: 04/27/17 09:40 Dose: 40 mg Heparin Sodium (Porcine) (Heparin) 5,000 units SC Q12 [facility] PRN Reason: Protocol Last Admin: 04/23/17 22:16 Dose: 5,000 units Ceftriaxone Sodium (Rocephin 1 Gram Ivpb) 1 gm in 100 mls @ 100 mls/hr IVPB DAILY [facility] PRN Reason: Protocol Last Admin: 04/27/17 09:35 Dose: 100 mls/hr Azithromycin (Zithromax 500mg In Ns) 500 mg in 250 mls @ 167 mls/hr IVPB DAILY [facility] PRN Reason: Protocol Last Admin: 04/27/17 09:50 Dose: 167 mls/hr Insulin Human Regular (Humulin R High) 0 units SC ACHS [facility] PRN Reason: Protocol Last Admin: 04/27/17 08:01 Dose: Not Given Levalbuterol HCl (Xopenex) 0.63 mg IH [id number] [facility] Last Admin: 04/27/17 09:00 Dose: 0.63 mg Levalbuterol HCl (Xopenex) 0.63 mg IH Q2 PRN PRN Reason: Shortness of Breath Metoprolol Tartrate (Lopressor) 5 mg IVP Q6H PRN PRN Reason: Systolic >160 diastolic >100 Last Admin: 04/27/17 05:46 Dose: 5 mg Valsartan (Diovan) 320 mg PO DAILY [facility] Last Admin: 04/27/17 09:48 Dose: 320 mg - Labs Labs: 04/27/17 06:30 04/27/17 06:30 PT 11.1 Seconds (9.9-11.8) 04/23/17 09:35 INR 1.03 (0.93-1.08) 04/23/17 09:35 APTT 18.4 Seconds (23.7-30.8) L 04/23/17 09:35 Attending/Attestation - Attestation I have personally seen and examined this patient.: Yes I have fully participated in the care of the patient.: Yes I have reviewed all pertinent clinical information, including history, physical exam and plan: Yes Notes (Text): 04/27/17 11:57 81 yo with resolved HXRF. conservative fluid and 02 management, pulm toilet, optimization of cardiac Rx, bronchodilators, abx, steroid taper. dvt/gi prophylaxis ccm time 40 min
--- NOTE | 2017-04-26 07:16 | PN ---
DATE: 04/26/2017 SUBJECTIVE: The patient appears comfortable this morning. She is not short of breath at rest. PHYSICAL EXAMINATION: VITAL SIGNS: Temperature is 99.0, pulse 81, respirations 18, blood pressure 159/70. Oxygen saturation on nasal cannula is 97%. HEENT: Normocephalic and atraumatic. NECK: No JVD. CARDIOVASCULAR: Systolic ejection murmur at the lower left sternal border. Positive S3 gallop. LUNGS: Decreased breath sounds at the bases with crackles. Minimal/less rhonchi. No wheezing. EXTREMITIES: Less edema. No cyanosis. No clubbing. Calves are nontender to palpation. GI: Abdomen is soft, nontender and nondistended. Bowel sounds are positive. SKIN: No acute rash. NEUROLOGIC: Limited at the present time. PERTINENT LABORATORY DATA: Chest x-ray was done yesterday morning and reviewed. The chest x-ray is improved with decreased pulmonary edema and decreased effusions. IMPRESSION: 1. Acute congestive heart failure. 2. Bilateral pleural effusions. 3. Acute bronchitis. 4. Anemia. 5. Renal insufficiency. PLAN: The patient appears very comfortable this morning. She is not short of breath at rest. She does states she is feeling much better overall. Oxygen saturation on nasal cannula is now 97%. On physical exam, there is certainly less bronchospasm noted. I will continue with the current nebulizer treatments for now. I would continue with the treatment for acute congestive heart failure as per cardiology. Input by Dr. Boudreaux is noted. The patient remains on Lasix therapy. Also noted in the laboratory data, there is a rise in the troponin-possibly consistent with an acute coronary syndrome. Clinical status of the patient has certainly improved-compared to the initial presentation. However, the overall status/prognosis for this patient remains very guarded. All are aware. I will discuss the above with Dr. Larios. Pascual Maynard MD MTDMatt
[2017-04-26] MEDS: Insulin Reg-HIGH-Coverage SC SCH ×4 (08:01→23:39)
[2017-04-26] MEDS: Levalbuterol 0.63 MG/3 ML Inhal Soln UD IH SCH ×3 (09:00→20:24)
[2017-04-26] MEDS: cefTRIAXone 1 gm 1 GM/100 ML BAG IVPB SCH (09:46)
[2017-04-26] MEDS: Azithromycin 500MG/NS 250ml 500 MG/250 ML BAG IVPB SCH (09:46)
[2017-04-26 10:00] LABS: BASO # 0.02 K/mm3 (0.0-2.0); BASO % 0.2 % (0.0-3.0); EOS # 0.6 (0.0-0.7); EOS % 4.9 % (1.5-5.0); GRAN % 80.9 % (50.0-68.0); LYMPH # 0.6 (1.2-3.4); LYMPH % 4.6 % (22.0-35.0); MEAN CELL VOLUME 74.1 fl (80.0-105.0); MEAN CORPUSCULAR HEMOGLOBIN 22.7 pg (25.0-35.0); MEAN CORPUSCULAR HGB CONC 30.6 g/dl (31.0-37.0); MONO # 1.1 (0.1-0.6); MONO % 9.4 % (1.0-6.0); PLATELET COUNT 151 10^3/uL (120.0-450.0); RBC 4.28 10^6/uL (3.5-6.1); RED CELL DISTRIBUTION WIDTH 24.2 % (11.5-14.5)
[2017-04-26 10:12] LABS: ALB/GLOB RATIO 1.1 (1.1-1.8); ALBUMIN 3.3 g/dL (3.0-4.8); ALT/SGPT 38 U/L (7-56); AST/SGOT 29 U/L (15-39); BLOOD UREA NITROGEN 14 mg/dL (7-21); CALCIUM 8.5 mg/dL (8.4-10.5); GFR AFRICAN-AMERICAN > 60; GFR NON-AFRICAN AMERICAN 53; HEMOGLOBIN 9.7 g/dL (12.0-16.0)
--- NOTE | 2017-04-26 11:17 | CP.PCM.PN ---
Subjective - Date & Time of Evaluation Date of Evaluation: 04/26/17 Time of Evaluation: 11:16 - Subjective Subjective: pt needs angiocath insertion . Objective - Vital Signs/Intake and Output Vital Signs (last 24 hours): Temp Pulse Resp BP Pulse Ox 99.0 F 81 18 182/88 H 97 04/26/17 06:00 04/26/17 06:00 04/26/17 06:00 04/26/17 09:44 04/26/17 06:00 Intake and Output: 04/26/17 04/26/17 06:59 18:59 Intake Total 0 Output Total 0 Balance 0 - Medications Medications: Current Medications Allopurinol (Zyloprim) 100 mg PO DAILY [facility] Last Admin: 04/26/17 09:44 Dose: 100 mg Colchicine (Colocrys) 0.6 mg PO DAILY [facility] Last Admin: 04/26/17 09:46 Dose: 0.6 mg Furosemide (Lasix) 40 mg IVP BID [facility] Last Admin: 04/26/17 09:44 Dose: 40 mg Heparin Sodium (Porcine) (Heparin) 5,000 units SC Q12 [facility] PRN Reason: Protocol Last Admin: 04/23/17 22:16 Dose: 5,000 units Ceftriaxone Sodium (Rocephin 1 Gram Ivpb) 1 gm in 100 mls @ 100 mls/hr IVPB DAILY [facility] PRN Reason: Protocol Last Admin: 04/26/17 09:46 Dose: 100 mls/hr Azithromycin (Zithromax 500mg In Ns) 500 mg in 250 mls @ 167 mls/hr IVPB DAILY [facility] PRN Reason: Protocol Last Admin: 04/26/17 09:46 Dose: 167 mls/hr Insulin Human Regular (Humulin R High) 0 units SC ACHS [facility] PRN Reason: Protocol Last Admin: 04/26/17 08:01 Dose: Not Given Levalbuterol HCl (Xopenex) 0.63 mg IH [id number] [facility] Last Admin: 04/26/17 09:00 Dose: 0.63 mg Levalbuterol HCl (Xopenex) 0.63 mg IH Q2 PRN PRN Reason: Shortness of Breath Metoprolol Tartrate (Lopressor) 5 mg IVP Q6H PRN PRN Reason: Systolic >160 diastolic >100 Last Admin: 04/25/17 22:49 Dose: 5 mg Pantoprazole Sodium (Protonix Ec Tab) 40 mg PO 0600 [facility] Last Admin: 04/25/17 05:57 Dose: 40 mg Valsartan (Diovan) 320 mg PO DAILY [facility] Last Admin: 04/26/17 09:44 Dose: 320 mg - Labs Labs: 04/26/17 09:40 04/26/17 09:40 PT 11.1 Seconds (9.9-11.8) 04/23/17 09:35 INR 1.03 (0.93-1.08) 04/23/17 09:35 APTT 18.4 Seconds (23.7-30.8) L 04/23/17 09:35 Assessment and Plan - Assessment and Plan (Free Text) Assessment: 20 guage angiocath inserted in rt external jugular.
[2017-04-26] MEDS: Metoprolol 1 mg/ml Inj IVP PRN ×2 (11:55→21:20)
--- NOTE | 2017-04-26 12:00 | CP.PCM.PN ---
<Makenna Oviedo - Last Filed: 04/26/17 13:10> Subjective - Date & Time of Evaluation Date of Evaluation: 04/26/17 Time of Evaluation: 11:55 - Subjective Subjective: Gastroenterology Fellow/PGY5 Progress Note Patient tolerating regular. Denies abdominal pain, melena, or hematochezia. A 12 -point review of systems negative except for as above. Objective - Vital Signs/Intake and Output Vital Signs (last 24 hours): Temp Pulse Resp BP Pulse Ox 99.0 F 81 18 182/88 H 97 04/26/17 06:00 04/26/17 06:00 04/26/17 06:00 04/26/17 09:44 04/26/17 06:00 Intake and Output: 04/26/17 04/26/17 06:59 18:59 Intake Total 0 Output Total 0 Balance 0 - Medications Medications: Current Medications Allopurinol (Zyloprim) 100 mg PO DAILY [facility] Last Admin: 04/26/17 09:44 Dose: 100 mg Colchicine (Colocrys) 0.6 mg PO DAILY [facility] Last Admin: 04/26/17 09:46 Dose: 0.6 mg Furosemide (Lasix) 40 mg IVP BID [facility] Last Admin: 04/26/17 09:44 Dose: 40 mg Heparin Sodium (Porcine) (Heparin) 5,000 units SC Q12 [facility] PRN Reason: Protocol Last Admin: 04/23/17 22:16 Dose: 5,000 units Ceftriaxone Sodium (Rocephin 1 Gram Ivpb) 1 gm in 100 mls @ 100 mls/hr IVPB DAILY [facility] PRN Reason: Protocol Last Admin: 04/26/17 09:46 Dose: 100 mls/hr Azithromycin (Zithromax 500mg In Ns) 500 mg in 250 mls @ 167 mls/hr IVPB DAILY [facility] PRN Reason: Protocol Last Admin: 04/26/17 09:46 Dose: 167 mls/hr Potassium Chloride (Potassium Chloride 10 Meq/100 Ml) 10 meq in 100 mls @ 100 mls/hr IVPB Q2H [facility] Stop: 04/26/17 14:29 Insulin Human Regular (Humulin R High) 0 units SC ACHS [facility] PRN Reason: Protocol Last Admin: 04/26/17 08:01 Dose: Not Given Levalbuterol HCl (Xopenex) 0.63 mg IH [id number] [facility] Last Admin: 04/26/17 09:00 Dose: 0.63 mg Levalbuterol HCl (Xopenex) 0.63 mg IH Q2 PRN PRN Reason: Shortness of Breath Metoprolol Tartrate (Lopressor) 5 mg IVP Q6H PRN PRN Reason: Systolic >160 diastolic >100 Last Admin: 04/25/17 22:49 Dose: 5 mg Pantoprazole Sodium (Protonix Ec Tab) 40 mg PO 0600 [facility] Last Admin: 04/25/17 05:57 Dose: 40 mg Valsartan (Diovan) 320 mg PO DAILY [facility] Last Admin: 04/26/17 09:44 Dose: 320 mg - Labs Labs: 04/26/17 09:40 04/26/17 09:40 PT 11.1 Seconds (9.9-11.8) 04/23/17 09:35 INR 1.03 (0.93-1.08) 04/23/17 09:35 APTT 18.4 Seconds (23.7-30.8) L 04/23/17 09:35 - Constitutional Appears: Non-toxic, No Acute Distress - Head Exam Head Exam: ATRAUMATIC, NORMOCEPHALIC - Eye Exam Eye Exam: EOMI, PERRL Pupil Exam: PERRL. absent: Miosis, Mydriatic - ENT Exam ENT Exam: Mucous Membranes Moist, Normal Oropharynx - Neck Exam Neck Exam: Full ROM, Normal Inspection - Respiratory Exam Respiratory Exam: Clear to Ausculation Bilateral. absent: Rales, Rhonchi, Wheezes - Cardiovascular Exam Cardiovascular Exam: RRR, +S1, +S2. absent: Gallop, Rubs - GI/Abdominal Exam GI & Abdominal Exam: Soft, Normal Bowel Sounds. absent: Distended, Firm, Guarding, Rigid, Tenderness, Organomegaly, Rebound - Extremities Exam Extremities Exam: Normal Inspection. absent: Pedal Edema - Neurological Exam Neurological Exam: Alert, Awake - Psychiatric Exam Psychiatric exam: Normal Affect, Normal Mood - Skin Skin Exam: Dry, Intact, Normal Color, Warm Assessment and Plan - Assessment and Plan (Free Text) Assessment: 81 year old female with history of Hypertension, Diabetes, and Gout presenting with shortness of breath and leg swelling. Active treatment of CHF decompensation complicated by bilateral pleural effusions and bronchitis. GI consultation for anemia. Prior EGD and colonoscopy 5-10 years ago. Plan: >iron deficiency anemia >04/25/17 received 2 Units pRBCs, appropriate response >no overt GI blood loss >continue to monitor H/H >light brown stool since admission >continue heart healthy diet >continue PPI >continue cardiopulmonary optimization >cardiology recommendations appreciated >discussed outpatient endoscopic evaluation with patient, patient in agreeance <Benedicto Calvert - Last Filed: 04/26/17 19:04> Objective - Vital Signs/Intake and Output Vital Signs (last 24 hours): Temp Pulse Resp BP Pulse Ox 98.7 F 84 18 186/82 H 97 04/26/17 17:47 04/26/17 18:00 04/26/17 17:47 04/26/17 17:57 04/26/17 06:00 Intake and Output: 04/26/17 04/27/17 18:59 06:59 Intake Total 360 Output Total 300 Balance 60 - Medications Medications: Current Medications Allopurinol (Zyloprim) 100 mg PO DAILY [facility] Last Admin: 04/26/17 09:44 Dose: 100 mg Amlodipine Besylate (Norvasc) 5 mg PO DAILY [facility] Last Admin: 04/26/17 13:06 Dose: 5 mg Colchicine (Colocrys) 0.6 mg PO DAILY [facility] Last Admin: 04/26/17 09:46 Dose: 0.6 mg Furosemide (Lasix) 40 mg IVP BID [facility] Last Admin: 04/26/17 17:57 Dose: 40 mg Heparin Sodium (Porcine) (Heparin) 5,000 units SC Q12 [facility] PRN Reason: Protocol Last Admin: 04/23/17 22:16 Dose: 5,000 units Ceftriaxone Sodium (Rocephin 1 Gram Ivpb) 1 gm in 100 mls @ 100 mls/hr IVPB DAILY [facility] PRN Reason: Protocol Last Admin: 04/26/17 09:46 Dose: 100 mls/hr Azithromycin (Zithromax 500mg In Ns) 500 mg in 250 mls @ 167 mls/hr IVPB DAILY [facility] PRN Reason: Protocol Last Admin: 04/26/17 09:46 Dose: 167 mls/hr Insulin Human Regular (Humulin R High) 0 units SC ACHS [facility] PRN Reason: Protocol Last Admin: 04/26/17 16:37 Dose: Not Given Levalbuterol HCl (Xopenex) 0.63 mg IH [id number] [facility] Last Admin: 04/26/17 15:30 Dose: 0.63 mg Levalbuterol HCl (Xopenex) 0.63 mg IH Q2 PRN PRN Reason: Shortness of Breath Metoprolol Tartrate (Lopressor) 5 mg IVP Q6H PRN PRN Reason: Systolic >160 diastolic >100 Last Admin: 04/26/17 11:55 Dose: 5 mg Pantoprazole Sodium (Protonix Ec Tab) 40 mg PO 0600 [facility] Last Admin: 04/25/17 05:57 Dose: 40 mg Valsartan (Diovan) 320 mg PO DAILY [facility] Last Admin: 04/26/17 09:44 Dose: 320 mg - Labs Labs: 04/26/17 09:40 04/26/17 09:40 PT 11.1 Seconds (9.9-11.8) 04/23/17 09:35 INR 1.03 (0.93-1.08) 04/23/17 09:35 APTT 18.4 Seconds (23.7-30.8) L 04/23/17 09:35 Attending/Attestation - Attestation I have personally seen and examined this patient.: Yes I have fully participated in the care of the patient.: Yes I have reviewed all pertinent clinical information, including history, physical exam and plan: Yes Notes (Text): 04/26/17 19:02 81 year old female with h/o CHF, HTN and DM admitted to ICU with SOB/CHF exacerbation, also with anemia, questionable h/o melena. 1. Iron deficiency anemia Plan: -no witnessed acute GI bleeding noted in the hospital -recommend outpatient egd/colonoscopy for further evaluation when medically optimized from cardiac perspective -chronic iron deficiency anemia does not represent a contraindication to appropriate cardiac workup and treatment including but not limited to cardiac catheterization, stenting, or anti-coagulation -continue empiric PPI therapy
--- NOTE | 2017-04-26 13:10 | PN ---
DATE: SUBJECTIVE: I saw Dara resting in telemetry in room #276. She slept fairly well. She has oxygen on. She is doing better than in the intensive care unit, but not ready yet. She is here for CHF, pneumonia, anemia, renal insufficiency, acute respiratory failure, and urinary tract infection. PHYSICAL EXAMINATION: VITAL SIGNS: 99 temperature, 81 pulse, 159/70 blood pressure, 18 respiratory rate, 97% O2 sat on room air. HEENT: Head is atraumatic and normocephalic. Throat is moist. NECK: Supple. HEART: Regular rate. LUNGS: Decreased breath sounds, but clear. ABDOMEN: Soft. EXTREMITIES: No edema. MEDICATIONS: She is currently on Colcrys, Diovan, heparin, insulin, Lasix, Lopressor, Protonix, Rocephin IV, Xopenex, azithromycin IV, Zyloprim. LABORATORY DATA: She had a lab test that showed 148 sodium, potassium is low yesterday at 3, it was replaced. She troponin at 0.31 yesterday, waiting for today's labs to populate. CBC yesterday was 10.3 and hemoglobin 7.5. Waiting for today's labs to populate; otherwise, I will transfuse with 2 units of packed red blood cells today. PLAN: She is being seen by cardio, pulmonary and GI. She might need to be transfused. Continue with physical therapy. She might need to be cath'ed with the elevated troponins; then subacute rehab possibly at [facility] might be the next plan to further care and treatment and we get that arranged when she is stable. Gumaro Larios DO MTDMatt
--- NOTE | 2017-04-26 16:35 | PN ---
DATE: 04/26/2017 SUBJECTIVE: The patient is chest painfree. PHYSICAL EXAMINATION VITAL SIGNS: Blood pressure varies from 160-182 systolic, heart rate is in the 80s. NECK: Negative JVD. LUNGS: Without rales. HEART: Reveal S1, S2. EXTREMITIES: Without edema. LABORATORY DATA: Potassium is 3.1. The hemoglobin is 9.7. IMPRESSION: 1. Status post status post respiratory failure. 2. Status post congestive heart failure. 3. Bilateral effusions. 4. [id number] myocardial infarction. 5. Coronary artery disease. PLAN: Given these findings, I have had an extensive discussion with the patient as well as the daughter. They made her DNR in which they were not quite understanding in terms of what a DNR meant. The patient has a normal quality of life at home. I have discussed with them the possibility of cardiac catheterization. They will re-thick their thoughts on DNR. They will have a family discussion and get back to me about the possibility of cardiac catheterization and rescinding the DNR. Tab Boudreaux MD
[2017-04-27] MEDS ORDERED: Nitroglycerin 2% Ointment Foilpak UD TOP STA (00:04)
[2017-04-27] MEDS: Levalbuterol 0.63 MG/3 ML Inhal Soln UD IH SCH ×4 (02:04→19:50)
[2017-04-27] MEDS: Pantoprazole 40 mg EC Tab PO SCH (05:43)
[2017-04-27] MEDS: Metoprolol 1 mg/ml Inj IVP PRN ×2 (05:46→22:27)
--- NOTE | 2017-04-27 06:36 | PN ---
SUBJECTIVE: The patient appears comfortable this morning. She is not short of breath at rest. PHYSICAL EXAMINATION VITAL SIGNS: Temperature is 98.7, pulse 85, respirations 18/20, blood pressure 180/77. Oxygen saturation on nasal cannula is 99%. HEENT: Normocephalic and atraumatic. NECK: No JVD. CARDIOVASCULAR: Systolic ejection murmur at the lower left sternal border. Positive S3 gallop. LUNGS: Decreased breath sounds at the bases with crackles. Minimal/less rhonchi. No wheezing. EXTREMITIES: Less edema. No cyanosis, no clubbing. Calves are nontender to palpation. GASTROINTESTINAL: Abdomen is soft, nontender, nondistended. Bowel sounds are positive. SKIN: No acute rash. NEUROLOGIC: Limited at the present time. IMPRESSION: 1. Acute congestive heart failure. 2. Bilateral pleural effusions. 3. Acute bronchitis. 4. Anemia. 5. Renal insufficiency. PLAN: The patient appears very comfortable this morning. She is not short of breath at rest. She states she is feeling much better overall. On physical exam, her bronchospasm is certainly less. I will continue with the current nebulizer treatments for now. Oxygen saturation on nasal cannula is now 99%. The patient remains on antibiotic therapy. There are no temperatures noted. I would continue with the treatment for congestive heart failure as per cardiology. Input by Dr. Boudreaux is noted. Clinical status of the patient has certainly improved. I will discuss the above with Dr. Larios. Pascual Maynard MD MTDD
[2017-04-27 07:48] LABS: BASO # 0.02 K/mm3 (0.0-2.0); BASO % 0.2 % (0.0-3.0); EOS # 0.5 (0.0-0.7); GRAN # 8.44 (1.4-6.5); GRAN % 80.6 % (50.0-68.0); HEMOGLOBIN 9.6 g/dL (12.0-16.0); LYMPH # 0.5 (1.2-3.4); LYMPH % 4.3 % (22.0-35.0); MEAN CORPUSCULAR HEMOGLOBIN 22.3 pg (25.0-35.0); MEAN CORPUSCULAR HGB CONC 30.1 g/dl (31.0-37.0); MONO % 9.9 % (1.0-6.0); RBC 4.31 10^6/uL (3.5-6.1); RED CELL DISTRIBUTION WIDTH 24.7 % (11.5-14.5); WHITE BLOOD COUNT 10.5 10^3/ul (4.5-11.0)
[2017-04-27 07:58] LABS: ALB/GLOB RATIO 1.1 (1.1-1.8); ALBUMIN 3.1 g/dL (3.0-4.8); CALCIUM 8.6 mg/dL (8.4-10.5)
[2017-04-27] MEDS: Insulin Reg-HIGH-Coverage SC SCH ×4 (08:01→22:30)
[2017-04-27] MEDS ORDERED: Potassium Chloride 20 mEq ER Tab PO ONE (08:20)
[2017-04-27 08:26] LABS: PLATELET COUNT 152 10^3/uL (120.0-450.0)
[2017-04-27] MEDS: cefTRIAXone 1 gm 1 GM/100 ML BAG IVPB SCH (09:35)
[2017-04-27] MEDS: Azithromycin 500MG/NS 250ml 500 MG/250 ML BAG IVPB SCH (09:50)
--- NOTE | 2017-04-27 10:03 | CP.PCM.PN ---
<Makenna Oviedo - Last Filed: 04/27/17 12:11> Subjective - Date & Time of Evaluation Date of Evaluation: 04/27/17 Time of Evaluation: 09:59 - Subjective Subjective: Gastroenterology Fellow/PGY5 Progress Note Patient tolerating regular diet. Daily bowel movements. Daughter at bedside states they have decided to proceed with cardiac cath. A 12-point review of systems negative except for as above. Objective - Vital Signs/Intake and Output Vital Signs (last 24 hours): Temp Pulse Resp BP Pulse Ox 98.6 F 82 20 186/86 H 99 04/27/17 06:00 04/27/17 09:40 04/27/17 06:00 04/27/17 09:40 04/27/17 06:00 Intake and Output: 04/27/17 04/27/17 06:59 18:59 Intake Total 520 Output Total 750 Balance -230 - Medications Medications: Current Medications Allopurinol (Zyloprim) 100 mg PO DAILY [facility] Last Admin: 04/26/17 09:44 Dose: 100 mg Amlodipine Besylate (Norvasc) 5 mg PO DAILY [facility] Last Admin: 04/27/17 09:40 Dose: 5 mg Clopidogrel Bisulfate (Plavix) 75 mg PO DAILY [facility] Colchicine (Colocrys) 0.6 mg PO DAILY [facility] Last Admin: 04/26/17 09:46 Dose: 0.6 mg Furosemide (Lasix) 40 mg IVP BID [facility] Last Admin: 04/27/17 09:40 Dose: 40 mg Heparin Sodium (Porcine) (Heparin) 5,000 units SC Q12 [facility] PRN Reason: Protocol Last Admin: 04/23/17 22:16 Dose: 5,000 units Ceftriaxone Sodium (Rocephin 1 Gram Ivpb) 1 gm in 100 mls @ 100 mls/hr IVPB DAILY [facility] PRN Reason: Protocol Last Admin: 04/27/17 09:35 Dose: 100 mls/hr Azithromycin (Zithromax 500mg In Ns) 500 mg in 250 mls @ 167 mls/hr IVPB DAILY [facility] PRN Reason: Protocol Last Admin: 04/27/17 09:50 Dose: 167 mls/hr Insulin Human Regular (Humulin R High) 0 units SC ACHS [facility] PRN Reason: Protocol Last Admin: 04/27/17 08:01 Dose: Not Given Levalbuterol HCl (Xopenex) 0.63 mg IH [id number] [facility] Last Admin: 04/27/17 09:00 Dose: 0.63 mg Levalbuterol HCl (Xopenex) 0.63 mg IH Q2 PRN PRN Reason: Shortness of Breath Metoprolol Tartrate (Lopressor) 5 mg IVP Q6H PRN PRN Reason: Systolic >160 diastolic >100 Last Admin: 04/27/17 05:46 Dose: 5 mg Valsartan (Diovan) 320 mg PO DAILY [facility] Last Admin: 04/27/17 09:48 Dose: 320 mg - Labs Labs: 04/27/17 06:30 04/27/17 06:30 PT 11.1 Seconds (9.9-11.8) 04/23/17 09:35 INR 1.03 (0.93-1.08) 04/23/17 09:35 APTT 18.4 Seconds (23.7-30.8) L 04/23/17 09:35 - Constitutional Appears: Non-toxic, No Acute Distress - Head Exam Head Exam: ATRAUMATIC, NORMOCEPHALIC - Eye Exam Eye Exam: EOMI, PERRL Pupil Exam: PERRL. absent: Miosis, Mydriatic - ENT Exam ENT Exam: Mucous Membranes Moist, Normal Oropharynx - Neck Exam Neck Exam: Full ROM, Normal Inspection - Respiratory Exam Respiratory Exam: Clear to Ausculation Bilateral. absent: Rales, Rhonchi, Wheezes - Cardiovascular Exam Cardiovascular Exam: RRR, +S1, +S2. absent: Gallop, Rubs - GI/Abdominal Exam GI & Abdominal Exam: Soft, Normal Bowel Sounds. absent: Distended, Firm, Guarding, Rigid, Tenderness, Organomegaly, Rebound - Extremities Exam Extremities Exam: Normal Inspection, Pedal Edema - Neurological Exam Neurological Exam: Alert, Awake - Psychiatric Exam Psychiatric exam: Normal Affect, Normal Mood - Skin Skin Exam: Dry, Intact, Normal Color, Warm Assessment and Plan - Assessment and Plan (Free Text) Assessment: 81 year old female with history of Hypertension, Diabetes, and Gout presenting with shortness of breath and leg swelling. Active treatment of CHF decompensation complicated by bilateral pleural effusions and bronchitis. GI consultation for anemia. Prior EGD and colonoscopy 5-10 years ago. Plan: >iron deficiency anemia >04/25/17 received 2 Units pRBCs, appropriate response >H/H stable, FOBT positive >no overt GI blood loss >continue to monitor H/H >continue heart healthy diet >follow up cardiology recommendations for possible cardiac catheterization >continue cardiopulmonary optimization >family/patient discussion held with agreeance on outpatient endoscopic evaluation once medically optimized <Ayla Bennett MD - Last Filed: 04/27/17 12:41> Objective - Vital Signs/Intake and Output Vital Signs (last 24 hours): Temp Pulse Resp BP Pulse Ox 98.6 F 82 20 186/86 H 99 04/27/17 06:00 04/27/17 09:40 04/27/17 06:00 04/27/17 09:40 04/27/17 06:00 Intake and Output: 04/27/17 04/27/17 06:59 18:59 Intake Total 520 Output Total 750 Balance -230 - Medications Medications: Current Medications Allopurinol (Zyloprim) 100 mg PO DAILY [facility] Last Admin: 04/26/17 09:44 Dose: 100 mg Amlodipine Besylate (Norvasc) 5 mg PO DAILY [facility] Last Admin: 04/27/17 09:40 Dose: 5 mg Clopidogrel Bisulfate (Plavix) 75 mg PO DAILY [facility] Furosemide (Lasix) 40 mg IVP BID [facility] Last Admin: 04/27/17 09:40 Dose: 40 mg Heparin Sodium (Porcine) (Heparin) 5,000 units SC Q12 [facility] PRN Reason: Protocol Last Admin: 04/23/17 22:16 Dose: 5,000 units Ceftriaxone Sodium (Rocephin 1 Gram Ivpb) 1 gm in 100 mls @ 100 mls/hr IVPB DAILY [facility] PRN Reason: Protocol Last Admin: 04/27/17 09:35 Dose: 100 mls/hr Azithromycin (Zithromax 500mg In Ns) 500 mg in 250 mls @ 167 mls/hr IVPB DAILY [facility] PRN Reason: Protocol Last Admin: 04/27/17 09:50 Dose: 167 mls/hr Insulin Human Regular (Humulin R High) 0 units SC ACHS [facility] PRN Reason: Protocol Last Admin: 04/27/17 08:01 Dose: Not Given Levalbuterol HCl (Xopenex) 0.63 mg IH [id number] [facility] Last Admin: 04/27/17 09:00 Dose: 0.63 mg Levalbuterol HCl (Xopenex) 0.63 mg IH Q2 PRN PRN Reason: Shortness of Breath Metoprolol Tartrate (Lopressor) 5 mg IVP Q6H PRN PRN Reason: Systolic >160 diastolic >100 Last Admin: 04/27/17 05:46 Dose: 5 mg Valsartan (Diovan) 320 mg PO DAILY [facility] Last Admin: 04/27/17 09:48 Dose: 320 mg - Labs Labs: 04/27/17 06:30 04/27/17 06:30 PT 11.1 Seconds (9.9-11.8) 04/23/17 09:35 INR 1.03 (0.93-1.08) 04/23/17 09:35 APTT 18.4 Seconds (23.7-30.8) L 04/23/17 09:35 Attending/Attestation - Attestation I have personally seen and examined this patient.: Yes I have fully participated in the care of the patient.: Yes I have reviewed all pertinent clinical information, including history, physical exam and plan: Yes Notes (Text): 04/27/17 12:38 Patient seen with GI fellow on rounds. This is a 81 year old female with h/o CHF , HTN and DM admitted to ICU with SOB/CHF exacerbation, also with anemia s/p 2 units PRBC with appropriate response. Rectal brown stool. No overt signs of GI bleeding. Undergoing cardiac work up. Can consider bidirectional luminal exam as outpatient once cardiac and pulmonary status is stablized. No urgent indication for luminal exam. Continue PPI. Will sign off. Thank you for letting us participate in the care of your patient
--- NOTE | 2017-04-27 11:01 | PN ---
DATE: SUBJECTIVE: I saw Dara resting comfortably in bed this morning. Her daughter was there also and also discussed with the case management and social director this morning. We tried to get her to [facility] for subacute rehab before she goes home. Dr. Boudreaux, the custodial foreman is also concerned and wants to do a catheterization on her, so we talked about doing it tomorrow before she goes to [facility]. In the meantime, she is comfortable in bed. No chest pain or shortness of breath. No abdominal pain. She is eating okay, trying physical therapy and in no acute distress. PHYSICAL EXAMINATION: VITAL SIGNS: 98.6 temperature, 68 pulse, 186/86 blood pressure, 20 respiratory rate, and 99% saturation on nasal cannula. HEENT: Head is atraumatic and normocephalic. Throat is moist. NECK: Supple. HEART: Regular rate. LUNGS: Decreased breath sounds, but clear. ABDOMEN: Soft. EXTREMITIES: No edema. NEUROLOGIC: She looks good physically. MEDICATIONS: She is currently on Colcrys, Diovan, heparin, insulin, Lasix, Lopressor, Norvasc, Protonix, Rocephin, Xopenex, Zithromax, and Zyloprim. LABORATORY DATA: She has a 148 sodium yesterday, 3.1 potassium yesterday, waiting for today's to populate, 14 BUN, creatinine is 1, GFR is 53, sugar is 101, and calcium is 8.5. Total bilirubin is 0.8, AST is 29, ALT is 38, alkaline phosphatase is 84, total protein 6.4. White count is 10.5, hemoglobin 9.6 holding status post transfusion, hematocrit 31.9, platelets are pending, but yesterday it was 151. ASSESSMENT AND PLAN: She is being seen by cardiopulmonary and GI. The plan is for catheterization possibly at [facility] at subacute rehab before she goes home and she was here for congestive heart failure, pneumonia, anemia, renal insufficiency, urinary tract infection, and non-ST elevation myocardial infarction. Gumaro Larios DO
--- NOTE | 2017-04-27 12:27 | PN ---
SUBJECTIVE: I saw the patient this morning. I discussed with the showcase maker this morning and also the daughter this morning. We are trying to get her to [facility]. She is doing much better. She is here for CHF, pneumonia, anemia, renal insufficiency, UTI and an NSTEMI. We are trying to get her to [facility] for subacute rehab before she goes home. Dr. Boudreaux, the air pumper, wants to cath her. We are trying to get that arranged before she would go to [facility] for physical therapy before she goes home, so case management and family are working with Dr. Boudreaux. We will see if they will arrange this for tomorrow morning, I am not sure. Otherwise, she is definitely improved since the intensive care unit. PHYSICAL EXAMINATION GENERAL: She is alert, she is talking to me. She is comfortable. VITAL SIGNS: Today are 98.6 temp, 68 pulse, 186/86 blood pressure, 20 respiratory rate and 99% O2 sat on nasal cannula. HEENT: Head is atraumatic and normocephalic. Eyes are open. NECK: No sore throat. No neck pain. HEART: Regular rate. LUNGS: Decreased breath sounds, but clear to auscultation. ABDOMEN: Soft and nontender. Positive bowel sounds. EXTREMITIES: No edema. LABORATORY DATA: She has 10.5 white count; 9.6 hemoglobin, holding steady; 31.9 hematocrit; platelets are pending, it was 151 yesterday. She has a 148 sodium; potassium is 3.8, we have to replace the potassium; sugar is 101; calcium is 8.5; total bilirubin is 0.8; AST is 29; ALT is 38; alkaline phosphatase is 80 and total protein 6.4. MEDICATIONS: She is currently on Colcrys, Diovan, heparin, insulin, Lasix IV, Lopressor, Norvasc, Protonix, Rocephin IV, Xopenex, Zithromax IV and Zyloprim. ASSESSMENT AND PLAN: She is being seen by pulmonary, GI and cardiology. We are trying to get her to [facility] for subacute rehab before she goes home. The plan is to possibly do a catheterization tomorrow before she goes home. She was in the intensive care unit, now she is out on telemetry. She had congestive heart failure, pneumonia, anemia, renal insufficiency, urinary tract infection, non-ST segment elevation myocardial infarction, status post transfusion, possible catheterization at [facility]. We will follow. Continue treatment. Check her labs tomorrow. Gumaro Larios DO
--- NOTE | 2017-04-27 13:39 | PN ---
DATE: 04/27/2017 CARDIOLOGY FOLLOWUP SUBJECTIVE: The patient is awake and alert and after extensive discussion with the patient and family and thorough thought process for the past 24 hours, the patient and family agreed to cardiac catheterization in the morning. They understand and rescind the DNR for today. PHYSICAL EXAMINATION: VITAL SIGNS: Blood pressure is 186/86 and the heart rate is in the 60s. NECK: Negative JVD. LUNGS: Without rales. HEART: Reveals S1 and S2. EXTREMITIES: Without edema. LABORATORY DATA: Potassium is 3.1. Hemoglobin is 9.6. IMPRESSION: 1. Non-ST elevation myocardial infarction. 2. Status post congestive heart failure. 3. Coronary artery disease. 4. Status post respiratory failure. PLAN: Given these findings, we will load the patient with Plavix. We will proceed to cardiac catheterization in the morning. Tab Boudreaux MD
[2017-04-28] MEDS: Levalbuterol 0.63 MG/3 ML Inhal Soln UD IH SCH ×2 (01:46→07:40)
[2017-04-28] MEDS: Metoprolol 1 mg/ml Inj IVP PRN (06:08)
[2017-04-28 06:33] VITALS: O2SAT 96
[2017-04-28 06:55] LABS: BASO # 0.03 K/mm3 (0.0-2.0); BASO % 0.3 % (0.0-3.0); EOS # 0.6 (0.0-0.7); EOS % 5.6 % (1.5-5.0); GRAN # 7.88 (1.4-6.5); GRAN % 79.3 % (50.0-68.0); HEMOGLOBIN 9.7 g/dL (12.0-16.0); LYMPH # 0.7 (1.2-3.4); LYMPH % 6.7 % (22.0-35.0); MEAN CELL VOLUME 74.5 fl (80.0-105.0); MEAN CORPUSCULAR HEMOGLOBIN 22.1 pg (25.0-35.0); MEAN CORPUSCULAR HGB CONC 29.7 g/dl (31.0-37.0); MONO # 0.8 (0.1-0.6); MONO % 8.1 % (1.0-6.0); PLATELET COUNT 143 10^3/uL (120.0-450.0); RBC 4.39 10^6/uL (3.5-6.1); RED CELL DISTRIBUTION WIDTH 25.2 % (11.5-14.5)
[2017-04-28] MEDS ORDERED: Lidocaine 2% Inj (20ml) ONE (07:01)
[2017-04-28] MEDS ORDERED: Iohexol 350 MG/100 ML VIAL ONE (07:01)
[2017-04-28] MEDS ORDERED: Iohexol 350mgl/ml 50 ML ONE (07:01)
[2017-04-28 07:09] LABS: ALBUMIN 3.1 g/dL (3.0-4.8); ALT/SGPT 36 U/L (7-56); AST/SGOT 25 U/L (15-39); BLOOD UREA NITROGEN 11 mg/dL (7-21); GFR AFRICAN-AMERICAN > 60; GFR NON-AFRICAN AMERICAN 53
[2017-04-28] MEDS ORDERED: Potassium Chloride 20 mEq ER Tab PO ONE (07:35)
[2017-04-28] MEDS: Insulin Reg-HIGH-Coverage SC SCH ×2 (07:50→11:58)
[2017-04-28] MEDS ORDERED: Midazolam 2 MG/2 ML VIAL ONE ×2 (07:51→08:02)
[2017-04-28] MEDS ORDERED: Sodium Chloride 0.9% 1,000 ML IV SCH (08:45)
[2017-04-28] MEDS: Azithromycin 500MG/NS 250ml 500 MG/250 ML BAG IVPB SCH (09:05)
[2017-04-28] MEDS ORDERED: Potassium Chloride 20 mEq ER Tab PO SCH (10:15)
[2017-04-28] MEDS: cefTRIAXone 1 gm 1 GM/100 ML BAG IVPB SCH (10:45)
--- NOTE | 2017-04-28 11:58 | CARDCATH ---
PROCEDURE DATE: 04/28/2017 HISTORY: The patient is an 81-year-old woman, who presents with CHF and a non-STEMI. Because of this, a cardiac catheterization was recommended. PROCEDURE: Left heart catheterization with coronary arteriography. Left ventriculogram. Right femoral artery was cannulated with 6-Croat[place] sheath. There were no complications. The findings on catheterization revealed a left ventricle that contracted normally. Estimated ejection fraction is 70%. Her coronary anatomy revealed a right dominant circulation. The RCA was selectively cannulized and found to have intimal irregularities without critical lesions. The left main artery was unremarkable. The LAD and diagonal vessels revealed intimal irregularities throughout its course. There was a 50% stenosis in the midportion of the LAD. Circumflex artery and obtuse marginal branches revealed intimal irregularities without critical lesions. Angio-Seal was used to close the femoral artery site. The patient tolerated the procedure well. In summary, the procedure revealed single-vessel CAD with a 50% stenosis of the mid-LAD LV function is normal. Given these findings, the patient's treatment will be medical with daily aspirin, statin therapy as well as a strict control of her blood pressure. Tab Boudreaux MD
[2017-04-28 14:04] VITALS: RESP 18
--- NOTE | 2017-04-28 14:21 | PN ---
PULMONARY NOTE DATE: 04/28/2017 SUBJECTIVE: The patient appears comfortable this morning. She is not short of breath at rest. PHYSICAL EXAMINATION: VITAL SIGNS: Temperature 96.0, pulse 82, respirations 18/20, blood pressure 182/89. Oxygen saturation on nasal cannula is 96%. HEENT: Normocephalic and atraumatic. NECK: No JVD. CARDIOVASCULAR: Systolic ejection murmur at the lower left sternal border. Positive S3 gallop. LUNGS: Decreased breath sounds at the bases with crackles. Very minimal/less rhonchi. No wheezing. EXTREMITIES: Less edema. No cyanosis. No clubbing. Calves are nontender to palpation. GI: Abdomen is soft, nontender, nondistended. Bowel sounds are positive. SKIN: No acute rash. NEUROLOGIC: Limited at the present time. IMPRESSION: 1. Acute congestive heart failure. 2. Bilateral pleural effusions. 3. Acute bronchitis. 4. Anemia. 5. Renal insufficiency. PLAN: The patient appears very comfortable this morning. She is not short of breath at rest. She states, she is feeling much better overall. On physical exam, her bronchospasm continues to resolve. I will continue with the current nebulizer treatments for now. I would continue with the treatment for congestive heart failure as per Cardiology. Input by Dr. Boudreaux is noted. The patient remains on Lasix/afterload reduction. The patient also remains on antibiotic therapy - which we can probably discontinue for now. Clinical status of the patient has significantly improved. I will discuss the above with Dr. Larios. Pascual Maynard MD MTDD
[2017-04-28 16:50] VITALS: BP 181/91; PULSE 82; TEMP 97.2
--- NOTE | 2017-04-29 09:14 | DS ---
HISTORY OF PRESENT ILLNESS: She will be discharged to [facility] today to continue her medications and physical therapy before she goes to home. MEDICATIONS: She is on Diovan, potassium, Lasix, Lipitor, Norvasc, Plavix, Rocephin, azithromycin and Zyloprim. PHYSICAL EXAMINATION: VITAL SIGNS: Are 96 temperature, 74 pulse, 169/75 blood pressure, 18 respiratory rate and 96% O2 saturation on room air. HEENT: Head is atraumatic and normocephalic. HEART: Regular rate. LUNGS: Decreased breath sounds, but clear. ABDOMEN: Soft. EXTREMITIES: No edema. She has had cardiac catheterization with Dr. Boudreaux. She did very well. LABORATORY DATA: She has a 10 white count, 9.7 hemoglobin, 32.7 hematocrit and 143 platelets. She has 146 sodium, potassium is 3, I am going to replace the potassium, BUN is 11, creatinine is 1, GFR is 53, sugar is 82, calcium is 9. Total bilirubin is 0.6, AST is 25, ALT is 36, alkaline phosphatase is 77 and total protein is 6.1. ASSESSMENT AND PLAN: She is being seen by GI, Pulmonary, Cariology, status post catheterization, did very well. She is here for numerous reasons, congestive heart failure, pneumonia, anemia, renal insufficiency, urinary tract infection, non-ST elevation myocardial infarction with good coronaries, iron deficiency anemia, she is status post transfusion and hemoglobin is stable. I will see her in [facility] tomorrow. Gumaro Larios DO
--- NOTE | 2017-04-29 13:43 | PQF CHF ---
This form is a permanent part of the medical record Dr. Calvillo, Chart reflects in your 04/24 progress note, acute decompensated right congestive heart failure. Please specify the type of CHF, systolic or diastolic. Please see choices below. Thank you. Clarification of your documentation is requested to better reflect the severity of illness and intensity of treatment of your patient. Indicators present [x] Diagnosis of CHF and/or history of CHF [x] BNP > 200 [x] Imaging Finding of Pulmonary Edema /Pleural Effusions [] Fluid/Volume Overload [] Pitting edema [] Ejection Fraction < 40% (Indicative of Systolic Heart Failure) [] Ejection Fraction > 40% (Indicative of Diastolic Heart Failure) [] Dyspnea / Orthopenea / Paroxysmal Nocturnal Dyspnea [] Other: Location in the medical record that reflects the above clinical findings: [] Treatment Provided: [] PHYSICIAN'S RESPONSE Based on your medical judgment of the clinical indicators outlined above, are you treating this patient for a known or suspected: [x] Acute CHF [] Systolic [] Diastolic [x] Combined [] Chronic CHF [] Systolic [] Diastolic [] Combined [] Acute on Chronic CHF []Systolic [] Diastolic [] Combined [] CHF due hypertension [] Acute systolic []Chronic systolic [] Acute/ chronic systolic [] Other, please indicate: [] []x If Unable to Determine, please check the box, sign and date. Present On Admission (POA) Indicator: [x] Present at the time of admission [] Not present at the time of admission [] Clinically Undetermined In responding to this query, please exercise your independent professional judgment. The fact that a question is asked does not imply that any particular answer is desired or expected. Thank you for your clarification on this documentation. If you have any questions please call:[ ] * Thank you, [ ]CANDIDO PENNINGTONsupervisor customer complaint service YAMILKA
== END 2017-04-28 17:54 | DRG 280 ==
LOC: ED 09:10 → ERH 12:18 → CCU 13:45 → 2RNO 04-25 14:39 → 2RSO 04-25 23:30
PROVIDERS: ADMIT Family Medicine; ATTEND Family Medicine
PROC: 5A09357 Assistance with Respiratory Ventilation, Less than 24 Consecutive Hours, Continuous Positive Airway Pressure (ICD-10-PCS; 2017-04-23)
PROC: 30233N1 Transfusion of Nonautologous Red Blood Cells into Peripheral Vein, Percutaneous Approach (ICD-10-PCS; 2017-04-24)
PROC: 4A023N7 Measurement of Cardiac Sampling and Pressure, Left Heart, Percutaneous Approach (ICD-10-PCS; principal; 2017-04-28)
PROC: B2151ZZ Fluoroscopy of Left Heart using Low Osmolar Contrast (ICD-10-PCS; 2017-04-28)
PROC: B2111ZZ Fluoroscopy of Multiple Coronary Arteries using Low Osmolar Contrast (ICD-10-PCS; 2017-04-28)
DX: I21.4 Non-ST elevation (NSTEMI) myocardial infarction (principal); J18.9 Pneumonia, unspecified organism; I50.43 Acute on chronic combined systolic (congestive) and diastolic (congestive) heart failure; J96.01 Acute respiratory failure with hypoxia; N17.9 Acute kidney failure, unspecified; N39.0 Urinary tract infection, site not specified; I11.0 Hypertensive heart disease with heart failure; I27.2 Other secondary pulmonary hypertension; E11.9 Type 2 diabetes mellitus without complications; D50.9 Iron deficiency anemia, unspecified; J20.9 Acute bronchitis, unspecified; I25.10 Atherosclerotic heart disease of native coronary artery without angina pectoris; M10.9 Gout, unspecified; Z79.82 Long term (current) use of aspirin; Z79.84 Long term (current) use of oral hypoglycemic drugs